=== PATIENT | female | born 1940 | race Caucasian/White ===

== ENCOUNTER 2016-08-16 06:15 | Outpatient (CLI) | payer MEDICARE ==
[~2016-08-16] VITALS: Ht 160 cm; Wt 85.7 kg
[~2016-08-16 06:15] MED LIST: ACET-2422 PO; ACET-819 PO; ALTERIL PC; AMLO10TA4 PO; ASPI-266 PO; ASPI-983 PO; ATEN25TA PO; ATOR20TA66 PO; CARV3.12 PO; CIPR-226 PO; CITA10TA70 PO; CLOP75TA PO; CLOP75TA69 PO; DIPH25TA82 PO; ESTR0.5T PO; HYDR-3812 PO; HYDR-3922 PO; LOSA50TA36 PO; LOSA50TA6 PO; Losartan Potassium PO; MELA1TAB20 PO; OMEP20CA12 PO; PRD20T PO; PROP1TAB77; TRAM50TA2 PO; TRIA1TAB3 PO; TRIAMTERENE; [UNRECOGNIZED DRUG - OTHER]
[2016-08-16] MEDS ORDERED: HYDR-3812 PO (10:46)
[2016-08-16] MEDS ORDERED: CARV6.252 PO (10:46)
[2016-08-16] MEDS ORDERED: HYDR12.5 PO (10:46)
[2016-08-16] MEDS ORDERED: TERA2CAP4 PO (10:46)
[2016-08-16] MEDS ORDERED: LOSA50TA36 PO (10:46)
== END 2016-08-16 10:54 ==
LOC: PREOP 06:15
PROVIDERS: ATTEND Surgery
DX: Z01.818 Encounter for other preprocedural examination (principal); K21.9 Gastro-esophageal reflux disease without esophagitis; D50.9 Iron deficiency anemia, unspecified

== ENCOUNTER 2016-10-06 17:26 | Outpatient (RCR) | payer MEDICARE ==
[~2016-10-06 17:26] MED LIST changes: +CARV6.252 PO; +HYDR12.5 PO; +TERA2CAP4 PO
[2016-10-23] MEDS ORDERED: FEXO180T84 PO (11:00)
[2016-10-29] MEDS ORDERED: PANT40TA2 PO (14:51)
== END 2016-12-07 | disposition home or self-care (01) ==
LOC: LAB 17:26
PROVIDERS: ATTEND Nurse Practitioner Family
DX: R05 Cough (principal)
CPT/HCPCS: 87070; 87205

== ENCOUNTER → 2016-10-21 | Outpatient (CLI) | payer MEDICARE ==
[~2016-10-21] MED LIST changes: +FEXO180T84 PO
--- NOTE | 2016-10-21 17:57 | Diagnostic Imaging Report ---
EXAM: CHEST PA/LAT (2 VIEW) INDICATION: COUGH COMPARISON: Chest radiograph of 05/03/2015. FINDINGS: Normal heart size and pulmonary vascularity. Calcified aorta. No focal pulmonary opacity, pleural effusion, or pneumothorax. No acute osseous findings. Postoperative findings in the lower cervical spine. Cholecystectomy clips. IMPRESSION: No acute cardiopulmonary findings. Dictated by: Dictated on workstation # [id number]
== END ==
LOC: RAD 16:46
PROVIDERS: ATTEND Nurse Practitioner Family
DX: R05 Cough (principal)
CPT/HCPCS: 71020; 87070; 87077; 87205

== ENCOUNTER 2016-10-23 05:39 | Outpatient (CLI) | payer MEDICARE ==
[~2016-10-23] VITALS: Ht 160 cm; Wt 83.5 kg
[~2016-10-23 05:39] MED LIST changes: -FEXO180T84 PO
[2016-10-23] MEDS ORDERED: FEXO180T84 PO (11:00)
== END 2016-10-23 11:05 ==
LOC: PREOP 05:39
PROVIDERS: ATTEND Surgery
DX: Z01.818 Encounter for other preprocedural examination (principal); K21.9 Gastro-esophageal reflux disease without esophagitis; D50.9 Iron deficiency anemia, unspecified

== ENCOUNTER 2016-10-29 09:26 | Day surgery (SDC) | payer MEDICARE ==
[~2016-10-29] VITALS: Ht 160 cm; Wt 83.5 kg
[~2016-10-29 09:26] MED LIST changes: +FEXO180T84 PO
[2016-10-29 09:35] VITALS: BP 182/78
[2016-10-29] MEDS ORDERED: LACTATED RINGERS 1,000 ML IV SCH (10:00)
[2016-10-29] MEDS ORDERED: HURRICAINE EXT TUBE (BENZOCAINE) XX PRN (10:00)
[2016-10-29] MEDS ORDERED: LACTATED RINGERS 1,000 ML IV ONE (10:19)
--- NOTE | 2016-10-29 11:14 | Progress Note-Pre Operative ---
Pre-Operative Progress Note H&P Reviewed The H&P was reviewed, patient examined and no changes noted. Date Seen by Provider: Oct 29, 2016 Time Seen by Provider: 11:14 Date H&P Reviewed: Oct 29, 2016 Time H&P Reviewed: 11:14 Pre-Operative Diagnosis: GERD IRON DEF ANEMIA JOCELYN EARLY DO Oct 29, 2016 11:14 am
[2016-10-29] MEDS ORDERED: proPOfol 200 MG/20 ML (DIPRIVAN) VIAL IV ONE ×2 (13:44→14:28)
[2016-10-29] MEDS ORDERED: MIDAZOLAM 2 MG/2 ML (VERSED) VIAL ONE (13:45)
[2016-10-29] MEDS ORDERED: HURRICAINE EXT TUBE (BENZOCAINE) ONE (14:04)
--- NOTE | 2016-10-29 14:50 | Progress Note-Post Operative ---
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
[2016-10-29] MEDS ORDERED: PANT40TA2 PO (14:51)
--- NOTE | 2016-10-29 14:52 | Discharge Inst-Simple/Standard ---
Discharge Inst-Standard Discharge Medications New, Converted or Re-Newed RX: Transmitted to Pharmacy Patient Instructions/Follow Up Plan of Care/Instructions/FU: start plavix back in 3 days as before. f/u oliva 2 weeks Activity as Tolerated: Yes Discharge Diet: Regular Diet JOCELYN EARLY DO Oct 29, 2016 14:52
[2016-10-29 15:00] VITALS: BP 168/70
[2016-10-29 15:30] VITALS: BP 173/78
[2016-10-29 15:45] VITALS: BP 173/78
--- NOTE | 2016-10-29 22:46 | OPERATIVE REPORT ---
DATE OF SERVICE: PREOPERATIVE DIAGNOSIS: Gastroesophageal reflux disease, iron deficiency anemia. POSTOPERATIVE DIAGNOSIS: Gastritis, rectosigmoid polyp x2. PROCEDURE: EGD with biopsy and colonoscopy with hot biopsy polypectomy x2. SURGEON: Jocelyn Ha DO ANESTHESIA: Per MANUFACTURING PLANNER. ESTIMATED BLOOD LOSS: None. SPECIMENS: Antrum and rectosigmoid polyps x2. INDICATIONS: The patient is a 76-year-old female, who has had GERD symptoms and iron deficiency anemia. She understands risks and benefits of procedures and wished to proceed with procedures. Consent was signed and on the chart. DESCRIPTION OF PROCEDURE: The patient was taken to the endoscopy suite, placed in left lateral recumbent position. Timeout was performed. Scope was inserted into the mouth, down the esophagus, stomach and into the duodenum without difficulty. There are no polyps, masses or ulcerations within the duodenum. The scope was slowly retracted back into the stomach. In the antrum, there were some areas of inflammation. Possibly a healing ulcer. Biopsy of the antrum was obtained. The scope was retroflexed noting no other pathology. Scope was returned to its normal position, slowly withdrawn until back into the distal esophagus. There are no polyps, masses, ulcerations or erythematous changes present in the esophagus. Scope was then slowly retracted back noting no other pathology. Digital rectal exam was performed and there were no palpable polyps, masses or ulcerations. Scope was inserted into the rectum and advanced all the way to the cecum with minimal difficulty. Prep was adequate. Scope was then slowly retracted back. There were no polyps, masses or ulcerations within the cecum, ascending, transverse, descending colon. Within the sigmoid colon, there was some diverticulosis present. The scope was continued to be retracted back. At the rectosigmoid area, there are 2 small polyps, which hot biopsy polypectomy was performed. Polypectomy was performed on both of these. The scope was also retroflexed in the rectum noting no other pathology. Scope was returned to its normal position, slowly withdrawn until completely removed. RECOMMENDATIONS: The patient due to gastritis and possible healing ulcer, we will start her on Protonix 40 mg daily. We will see how she is doing in approximately 2 weeks. She will follow up on the pathology on the polyps. We also would recommend repeat colonoscopy in 5 years for reevaluation of the colon polyps. If she has any problems prior to that, she should be reevaluated at that time. Job ID: [id number] DocumentID: [id number] Dictated Date: 10/29/2016 14:55:27 Hotel Attendant Date: 10/29/2016 22:45:40 Dictated By: JOCELYN HA DO
== END 2016-10-29 15:45 | disposition home or self-care (01) ==
LOC: ENDO 09:26
PROVIDERS: ATTEND Surgery
DX: D50.9 Iron deficiency anemia, unspecified (principal); K63.5 Polyp of colon; K21.9 Gastro-esophageal reflux disease without esophagitis; K29.70 Gastritis, unspecified, without bleeding; I10 Essential (primary) hypertension; J40 Bronchitis, not specified as acute or chronic; Z22.322 Carrier or suspected carrier of Methicillin resistant Staphylococcus aureus; I70.1 Atherosclerosis of renal artery; E66.9 Obesity, unspecified; Z68.32 Body mass index [BMI] 32.0-32.9, adult; Z79.02 Long term (current) use of antithrombotics/antiplatelets; Z79.899 Other long term (current) drug therapy; Z86.010 Personal history of colon polyps
CPT/HCPCS: 88305

== ENCOUNTER 2016-11-09 16:30 | Outpatient (RCR) | payer MEDICARE ==
[~2016-11-09 16:30] MED LIST changes: +PANT40TA2 PO
== END 2016-11-12 11:30 | disposition home or self-care (01) ==
LOC: LAB 16:30 → EDSTATUS 11-12 11:28 → LAB 11-12 11:30
PROVIDERS: ATTEND Nurse Practitioner Family
DX: A49.02 Methicillin resistant Staphylococcus aureus infection, unspecified site (principal)
CPT/HCPCS: 87081

== ENCOUNTER → 2017-06-03 | Outpatient (CLI) | payer MEDICARE ==
[~2017-06-03] MED LIST changes: +ACHD5005 PO; -HYDR-3812 PO
== END ==
LOC: CARD 11:38
PROVIDERS: ATTEND Physician Assistant
DX: I10 Essential (primary) hypertension (principal); E66.8 Other obesity; R00.2 Palpitations; I70.1 Atherosclerosis of renal artery; I08.0 Rheumatic disorders of both mitral and aortic valves
CPT/HCPCS: 93306

== ENCOUNTER → 2019-10-01 | Outpatient (CLI) | payer MEDICARE, OTHER ==
[~2019-10-01] MED LIST changes: -LOSA50TA36 PO; +LOSA50TA63 PO; +TRM50T PO
== END ==
LOC: CARD 10:30
PROVIDERS: ATTEND Physician Assistant
DX: D64.9 Anemia, unspecified (principal); I10 Essential (primary) hypertension; I70.1 Atherosclerosis of renal artery; R00.2 Palpitations
CPT/HCPCS: 93306

== ENCOUNTER → 2022-12-31 | Outpatient (CLI) | payer MEDICARE, OTHER ==
[~2022-12-31] MED LIST changes: +ASPI-1238 PO; -ASPI-983 PO; +CLOP-31 PO; -CLOP75TA69 PO
--- NOTE | 2022-12-31 15:53 | Diagnostic Imaging Report ---
TECHNIQUE: Live grayscale and color Doppler ultrasound was performed of the bilateral kidneys. Doppler evaluation of the renal arteries was performed. REASON FOR EXAM: Hypertension. History of right renal artery stent. COMPARISON: 04/07/2015. 01/20/2015. FINDINGS: The right kidney measures 9.0 cm in length. There is thinning of the renal cortex on the right. No focal mass or hydronephrosis. The peak systolic velocity within the right renal artery measures 62 cm/s. The right renal artery to aorta ratio is 0.7. The resistive indices within the arcuate arteries on the right range from 0.64 to 0.67. The left kidney measures 9.6 cm in length. Mild cortical thinning is seen in the left kidney. Simple cortical cyst is seen in the left kidney measuring 1.7 cm. No solid renal mass or hydronephrosis. The peak systolic velocity within the left renal artery measures 33 cm/s. The left renal artery to aorta ratio is 0.4. The resistive indices within the arcuate arteries on the left range from 0.6 to 0.76. The peak systolic velocity within the abdominal aorta is 85 cm/s. No ascites is seen in the abdomen. IMPRESSION: 1. No sonographic evidence of renal artery stenosis. 2. No acute abnormalities in the kidneys. No mass or hydronephrosis. 3. Thinned renal cortex bilaterally, suggestive of medical renal disease. Dictated by: Dictated on workstation # [id number]
== END ==
LOC: RAD 09:29
PROVIDERS: ATTEND Nurse Practitioner Critical Care Medicine
DX: R03.0 Elevated blood-pressure reading, without diagnosis of hypertension (principal); N18.9 Chronic kidney disease, unspecified; Z95.828 Presence of other vascular implants and grafts
CPT/HCPCS: 76770; 93975

== ENCOUNTER 2023-01-27 17:59 | Inpatient (IN) | payer MEDICARE, OTHER ==
[~2023-01-27] VITALS: Ht 160 cm; Wt 87.6 kg
--- NOTE | 2023-01-27 18:10 | ED General ---
General Stated Complaint: IRR HEART RATE/SOA Source of Information: Patient Exam Limitations: No Limitations History of Present Illness Date Seen by Provider: Jan 27, 2023 Time Seen by Provider: 18:10 Initial Comments Patient is an 82-year-old female who presents to the emergency department with her chief complaint of irregular heartbeat, a discomfort in her midsternal chest that feels like a "cramp". She states that she feels like this has been going on for few days, today a little bit worse. What prompted her to come in was the fact she took her blood pressure at home and it was in the 200s systolic. She states normally on a good day she is 150 systolic or so. She states she has felt a little congested today. She has had a nonproductive cough that she describes as "annoying". She has felt a little short of breath. No fevers or chills. No diarrhea. No dysuria urgency or frequency. No abnormal swelling in her lower extremities. Compliant with her daily medications. Her hide buffer is Dr. Boyer, she last saw him about 2 weeks ago. She states her blood pressure has been running "high". She is on verapamil and a clonidine patch. On arrival her EKG she is in a bigeminal pattern, heart rate 39. Counting the extrasystoles she is running in the 60s. Blood pressure quite elevated 210 or so systolic. She states she went to the hospital about a year and a half ago with chest pain and was transferred to [place], had angiography with no obstructive disease noted. She was placed on Plavix at the time and continues to take it. She does not take daily baby aspirin. Per review of Medical record - renal artery stent to Right renal a. 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 Timing/Duration: 2-3 Days Severity: Moderate Associated Systoms: Chest Pain, Cough, Shortness of Air Allergies and Home Medications Allergies Coded Allergies: Sulfa (Sulfonamide Antibiotics) (Verified Allergy, Unknown, 10/23/16) codeine (Verified Allergy, Unknown, 10/23/16) Patient Home Medication List Home Medication List Reviewed: Yes Acetaminophen (Tylenol Arthritis) 650 Mg Tablet.er, 650 MG PO BID, (Reported) Entered as Reported by: MAYCOL SCHMIDT on 01/28/23 1214 Last Action: Continued Cholecalciferol (Vitamin D3) (Vitamin D3) 50 Mcg (2000 Unit) Capsule, 50 MCG PO DAILY, (Reported) Entered as Reported by: MAYCOL SCHMIDT on 01/28/231213 Last Action: Converted Clonidine (Clonidine TTS 2 Patch) 0.2 Mg/24 Hour Patch.tdwk, 1 PATCH TD TUE, (Reported) Entered as Reported by: GINGER WILLIAMSON on 01/28/23910 Last Action: Continued Cyanocobalamin (Vitamin B-12) (Vitamin B-12) 500 Mcg Lozenge, 500 MCG PO DAILY, (Reported) Entered as Reported by: MAYCOL SCHMIDT on 01/28/231213 Last Action: Converted Lorazepam (Ativan) 0.5 Mg Tablet, 0.5 MG PO BID PRN for ANXIETY, (Reported) Entered as Reported by: GINGER WILLIAMSON on 01/28/23907 Last Action: Continued Lorazepam (Ativan) 0.5 Mg Tablet, 0.5 MG PO HS, (Reported) Entered as Reported by: MAYCOL SCHMIDT on 01/28/23 112 Last Action: Continued Verapamil HCl (Verapamil HCl) 120 Mg Tablet, 120 MG PO 0800,1400,1999, (Reported) Entered as Reported by: GINGER WILLIAMSON on 01/28/23907 Last Action: Held Vitamin B Complex (Vitamin B Complex) 1 Each Tablet, 1 EACH PO DAILY, (Reported) Entered as Reported by: MAYCOL SCHMIDT on 01/28/231213 Last Action: Converted Discontinued Medications Carvedilol (Carvedilol) 6.25 Mg Tablet, 6.25 MG PO BID, (Reported) Discontinued Reason: No Longer Taking Entered as Reported by: CARINE VARGAS on 08/16/16 1046 Last Action: Discontinued Clopidogrel Bisulfate (Plavix) 75 Mg Tablet, 75 MG PO DAILY, (Reported) Discontinued Reason: No Longer Taking Entered as Reported by: ZULEMA BENNETT on 05/03/15 0954 Last Action: Discontinued Fexofenadine HCl (Leona Allergy) 180 Mg Tablet, 180 MG PO DAILY, (Reported) Discontinued Reason: No Longer Taking Entered as Reported by: CARINE VARGAS on 10/23/16 1100 Last Action: Discontinued Hydrocodone Bit/Acetaminophen (Lortab 5 Mg Tablet) 1 Each Tablet, 1 EACH PO HS, (Reported) Discontinued Reason: No Longer Taking Entered as Reported by: CARINE VARGAS on 08/16/16 1046 Last Action: Discontinued Pantoprazole Sodium (Protonix) 40 Mg Tablet.dr, 40 MG PO DAILY Discontinued Reason: No Longer Taking Prescribed by: JOCELYN EARLY on 10/29/16 1451 Last Action: Discontinued Terazosin HCl (Terazosin HCl) 2 Mg Capsule, 2 MG PO BID, (Reported) Discontinued Reason: No Longer Taking Entered as Reported by: CARINE VARGAS on 08/16/16 104 Last Action: Discontinued Tramadol HCl (Tramadol HCl) 50 Mg Tablet, 50 MG PO BID PRN for PAIN, (Reported) Discontinued Reason: No Longer Taking Entered as Reported by: ZULEMA BENNETT on 05/03/15 0954 Last Action: Discontinued Review of Systems Review of Systems Constitutional: see HPI EENTM: nose congestion Respiratory: cough, short of breath Cardiovascular: chest pain Gastrointestinal: no symptoms reported Genitourinary: no symptoms reported Musculoskeletal: no symptoms reported Skin: no symptoms reported Psychiatric/Neurological: No Symptoms Reported Past Lqwujfd-Ybpwki-Eetdly Hx Immunizations Up To Date Tetanus Booster (TDap): Unknown Seasonal Allergies Seasonal Allergies: Yes Past Medical History Appendectomy, Bladder Surgery, Gallbladder, Hysterectomy Pneumonia Hypertension Reproductive Disorders: No 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 0.0oz. 83.076115pm; 32.6 BMI Method: General Appearance: No Apparent Distress, WD/WN Eyes: Bilateral Eye Normal Inspection, Bilateral Eye PERRL, Bilateral Eye EOMI HEENT: PERRL/EOMI Neck: Normal Inspection Respiratory: Lungs Clear, Normal Breath Sounds, No Accessory Muscle Use, No Respiratory Distress Cardiovascular: Bradycardia (30's), Other (2+ radial pulses bilaterally) Gastrointestinal: Non Tender, Soft Extremity: Normal Capillary Refill, Normal Inspection, Normal Range of Motion, Non Tender, No Pedal Edema Neurologic/Psychiatric: Alert, Oriented x3, No Motor/Sensory Deficits, Normal Mood/Affect, laboratory monitor II-XII Norm as Tested Progress/Results/Core Measures Suspected Sepsis SIRS Temperature: Pulse: Respiratory Rate: Laboratory Tests 01/27/23 18:10: White Blood Count 8.8 Blood Pressure / Mean: Laboratory Tests 01/27/23 18:10: Creatinine 2.09H, INR Comment 1.0, Platelet Count 289, Total Bilirubin 0.4 Results/Orders Lab Results Laboratory Tests Test 01/27/23 18:10 01/27/23 18:31 01/27/23 18:52 01/27/23 18:57 Range/Units White Blood Count 8.8 4.3-11.0 10^3/uL Red Blood Count 4.07 3.80-5.11 10^6/uL Hemoglobin 12.1 11.5-16.0 g/dL Hematocrit 38 35-52 % Mean Corpuscular Volume 93 80-99 fL Mean Corpuscular Hemoglobin 30 25-34 pg Mean Corpuscular Hemoglobin Concent 32 32-36 g/dL Red Cell Distribution Width 13.9 10.0-14.5 % Platelet Count 289 130-400 10^3/uL Mean Platelet Volume 10.7 9.0-12.2 fL Immature Granulocyte % (Auto) 0 % Neutrophils (%) (Auto) 62 42-75 % Lymphocytes (%) (Auto) 25 12-44 % Monocytes (%) (Auto) 8 0-12 % Eosinophils (%) (Auto) 4 0-10 % Basophils (%) (Auto) 1 0-10 % Neutrophils # (Auto) 5.5 1.8-7.8 10^3/uL Lymphocytes # (Auto) 2.2 1.0-4.0 10^3/uL Monocytes # (Auto) 0.7 0.0-1.0 10^3/uL Eosinophils # (Auto) 0.4 H 0.0-0.3 10^3/uL Basophils # (Auto) 0.1 0.0-0.1 10^3/uL Immature Granulocyte # (Auto) 0.0 0.0-0.1 10^3/uL Prothrombin Time 14.1 12.2-14.7 SEC INR Comment 1.0 0.8-1.4 Activated Partial Thromboplast Time 30 24-35 SEC Sodium Level 137 135-145 MMOL/L Potassium Level 4.1 3.6-5.0 MMOL/L Chloride Level 105 98-107 MMOL/L Carbon Dioxide Level 22 21-32 MMOL/L Anion Gap 10 5-14 MMOL/L Blood Urea Nitrogen 37 H 7-18 MG/DL Creatinine 2.09 H 0.60-1.30 MG/DL Estimat Glomerular Filtration Rate 23 BUN/Creatinine Ratio 18 Glucose Level 92 70-105 MG/DL Calcium Level 8.7 8.5-10.1 MG/DL Corrected Calcium 8.5 8.5-10.1 MG/DL Magnesium Level 2.2 1.6-2.4 MG/DL Total Bilirubin 0.4 0.1-1.0 MG/DL Aspartate Amino Transf (AST/SGOT) 17 5-34 U/L Alanine Aminotransferase (ALT/SGPT) 7 0-55 U/L Alkaline Phosphatase 90 40-136 U/L Myoglobin 66.4 10.0-92.0 NG/ML Troponin I < 0.028 <0.028 NG/ML Total Protein 7.7 6.4-8.2 GM/DL Albumin 4.2 3.2-4.5 GM/DL B-Type Natriuretic Peptide 767.5 H <100.0 PG/ML Urine Color YELLOW Urine Clarity CLEAR Urine pH 6.0 5-9 Urine Specific [place] 1.015 L 1.016-1.022 Urine Protein 3+ H NEGATIVE Urine Glucose (UA) NEGATIVE NEGATIVE Urine Ketones NEGATIVE NEGATIVE Urine Nitrite NEGATIVE NEGATIVE Urine Bilirubin NEGATIVE NEGATIVE Urine Urobilinogen 0.2 < = 1.0 MG/DL Urine Leukocyte Esterase NEGATIVE NEGATIVE Urine RBC (Auto) TRACE H NEGATIVE Urine RBC RARE /HPF Urine WBC NONE /HPF Urine Squamous Epithelial Cells NONE /HPF Urine Crystals NONE /LPF Urine Bacteria TRACE /HPF Urine Casts NONE /LPF Urine Mucus NEGATIVE /LPF Urine Culture Indicated NO SARS-CoV-2 RNA (RT-PCR) Not Detected Not Detecte My Orders Orders - TWAN HODGE MD Cbc And Automated Diff (01/27/23 18:27) Magnesium (01/27/23 18:27) Chest 1 View, Ap/Pa Only (01/27/23 18:27) Comprehensive Metabolic Panel (01/27/23 18:) Myoglobin Serum (01/27/23:) Protime With Inr (01/27/23) Partial Thromboplastin Time (01/27/23:) O2 (01/27/23 18:) Monitor-Rhythm Ecg Trace Only (01/27/23:) Lipid Panel (01/28/23 06:00) Ed Iv/Invasive Line Start (01/27/23:) Troponin I [place] (01/27/23 18:) Bnp [place] (01/27/23 18:29) Covid 19 Inhouse Test (01/27/23:) Ua Culture If Indicated (01/27/23 19:02) Ns Iv 500 Ml (Ns Iv 500 Ml) (01/27/23 19:02) Hydralazine Injection (Hydralazine Injec (01/27/23 19:15) Ed Admission (Communication) (01/27/23 19:49) Vital Signs/I&O 01/27/23 01/27/23 18:14 20:15 Temp 36.0 Pulse 73 65 Resp 18 20 B/P (MAP) 236/93 (140) 176/68 Pulse Ox 94 98 O2 Delivery Room Air Capillary Refill : Progress Note : Time: 19:00 Progress Note Patient seen and evaluated by me. Evaluation today includes history and physical exam with "chest pain protocol" to include EKG, CBC, comprehensive metabolic panel, magnesium level, myoglobin, coags, troponin, BNP, COVID test, urinalysis and magnesium level. Pertinent physical exam findings well-developed well-nourished female in no acute distress. Vital signs show bigeminal pattern on telemetry with heart rate showing in the 60s but actual palpable pulse in the upper 30s. Lungs are clear. Abdomen is soft and nontender. She has no lower extremity edema. She is mentating normally. Afebrile. Hypertensive with a systolic blood pressure in the 2 10-2 20 range. Differential diagnosis includes sick sinus syndrome, electrolyte abnormality, infection/UTI, coronary artery disease, hypertensive urgency versus emergency. Labs independently reviewed and interpreted by me as well as EKG, x-ray. Her CBC is normal, hemoglobin of 12 normal platelets, normal white count. Chem-12 is unremarkable except for mildly elevated BUN and creatinine at 37 and 2.09. Magnesium is normal at 2.2. Myoglobin is normal at 66. Her coags are within n ormal limits. Her troponin is undetectable. BNP mildly elevated at 767. Her urinalysis shows no evidence of infection, her COVID test is negative. Chest x- ray independently reviewed and interpreted by me shows what looks like early CHF/positive fluid balance. Her EKG is sinus in the upper 30s in a bigeminal pattern which puts her rate in the 70s. Patient is treated with 500 cc of normal saline IV as well as 10 mg of hydralazine. She has significant improvement in her blood pressure. She remains asymptomatic throughout her stay in the emergency department. She has no evidence of acute coronary syndrome, her electrolytes are normal. No evidence of infection was discovered. Due to what seems like, symptomatic bradycardia and arrhythmia, I spoke with Dr. Santiago on-call for cardiology who will consult on the patient. I also spoke with Dr. Carmen who will admit the patient for further evaluation. Patient is comfortable with the plan of care. All questions are sought and answered. ECG Initial ECG Impression Date: Jan 27, 2023 Initial ECG Impression Time: 18:10 Initial ECG Rate: 72 Comment underlying sinus (30's) with a bigeminal pattern making rate in the 60's-70 Diagnostic Imaging Diagonstic Imaging: Xray Plain Films/CT/US/NM/MRI: chest Comments [facility]. [place], [place] NAME: GIUSEPPE BOYER V [facility] REC#: [id number] PT STATUS: REG ER : 1940 PHYSICIAN: TWAN HODGE MD ADMIT DATE: 01/27/23/ER Signed Date of Exam:01/27/23 CHEST 1 VIEW, AP/PA ONLY INDICATION: Chest pain and shortness of breath. COMPARISONS: 10/21/2016 FINDINGS: Single view of the chest shows the cardiac contour to be enlarged. There is developing central venous congestion. Few scattered alveolar infiltrates are seen in the perihilar and bibasilar region but no confluent consolidations. There is no effusion or pneumothorax. Soft tissues and bony thorax are unremarkable. IMPRESSION: Developing congestive heart failure with superimposed scattered alveolar infiltrates but no confluent consolidations. Findings are accentuated by the portable technique. Dictated by: Dictated on workstation # [id number] Dict: 01/27/231856 Trans: 01/27/231903 [facility] [id number] Interpreted by: JULITA ROSADO MD Electronically signed by: JULITA ROSADO MD 01/27/231903 Departure Communication (Admissions) Time/Spoke to Admitting Phy: 19:[address] Carmen Time/Spoke to Consulting Phy: 19:[address] Santiago; Hydralazine 10mg Q6 (hold for SBP <140) Impression Primary Impression: Symptomatic bradycardia Additional Impression: Hypertensive urgency Disposition: ADMITTED INPATIENT Condition: Stable Admissions Decision to Admit Reason: Admit from ER (General) Decision to Admit/Date: Jan 27, 2023 Time/Decision to Admit Time: 19:10 Departure-Patient Inst. Referrals: Mony BOYD DO (PCP/Family) Primary Care Physician Copy Copies To 1: OSCAR BOYER MD, KATHRYN M MD Jan 27, 2023 18:10
[2023-01-27 18:32] LABS: BASOPHILS # (AUTO) 0.1 10^3/uL (0.0-0.1); BASOPHILS % (AUTO) 1 % (0-10); EOSINOPHILS # (AUTO) 0.4 10^3/uL (0.0-0.3); EOSINOPHILS % (AUTO) 4 % (0-10); HEMATOCRIT 38 % (35-52); HEMOGLOBIN 12.1 g/dL (11.5-16.0); LYMPHOCYTES # (AUTO) 2.2 10^3/uL (1.0-4.0); LYMPHOCYTES % (AUTO) 25 % (12-44); MEAN CORPUSCULAR HEMOGLOBIN 30 pg (25-34); MEAN CORPUSCULAR HGB CONC 32 g/dL (32-36); MEAN CORPUSCULAR VOLUME 93 fL (80-99); MEAN PLATELET VOLUME 10.7 fL (9.0-12.2); MONOCYTES # (AUTO) 0.7 10^3/uL (0.0-1.0); MONOCYTES % (AUTO) 8 % (0-12); NEUTROPHILS # (AUTO) 5.5 10^3/uL (1.8-7.8); NEUTROPHILS % (AUTO) 62 % (42-75); PLATELET COUNT 289 10^3/uL (130-400); WHITE BLOOD COUNT 8.8 10^3/uL (4.3-11.0)
[2023-01-27 18:43] LABS: PROTHROMBIN TIME PATIENT 14.1 SEC (12.2-14.7)
[2023-01-27 18:53] LABS: ALBUMIN 4.2 GM/DL (3.2-4.5); CHLORIDE 105 MMOL/L (98-107); POTASSIUM 4.1 MMOL/L (3.6-5.0); SODIUM 137 MMOL/L (135-145)
[2023-01-27 18:54] LABS: CALCIUM 8.7 MG/DL (8.5-10.1)
[2023-01-27 18:55] LABS: GLUCOSE 92 MG/DL (70-105); TOTAL PROTEIN 7.7 GM/DL (6.4-8.2)
[2023-01-27 18:56] LABS: CARBON DIOXIDE 22 MMOL/L (21-32)
[2023-01-27 18:57] LABS: BILIRUBIN,TOTAL 0.4 MG/DL (0.1-1.0)
[2023-01-27 18:59] LABS: ALKALINE PHOSPHATASE 90 U/L (40-136); CREATININE SERUM 2.09 MG/DL (0.60-1.30); GFR ESTIMATED 23
[2023-01-27 19:00] LABS: BUN/CREATININE RATIO 18
[2023-01-27 19:02] LABS: ALANINE AMINOTRANSFERASE 7 U/L (0-55); MAGNESIUM 2.2 MG/DL (1.6-2.4)
[2023-01-27] MEDS ORDERED: NS IV 500 ML 500 ML IV STA (19:02)
--- NOTE | 2023-01-27 19:02 | Diagnostic Imaging Report ---
INDICATION: Chest pain and shortness of breath. COMPARISONS: 10/21/2016 FINDINGS: Single view of the chest shows the cardiac contour to be enlarged. There is developing central venous congestion. Few scattered alveolar infiltrates are seen in the perihilar and bibasilar region but no confluent consolidations. There is no effusion or pneumothorax. Soft tissues and bony thorax are unremarkable. IMPRESSION: Developing congestive heart failure with superimposed scattered alveolar infiltrates but no confluent consolidations. Findings are accentuated by the portable technique. Dictated by: Dictated on workstation # [id number]
[2023-01-27] MEDS ORDERED: hydrALAZINE INJECTION 20 MG/ML VIAL IV ONE (19:15)
[2023-01-27 19:34] LABS: BACTERIA,URINE TRACE /HPF; BILIRUBIN,URINE NEGATIVE (NEGATIVE); CLARITY,URINE CLEAR; COLOR,URINE YELLOW; GLUCOSE, URINE (UA) NEGATIVE (NEGATIVE); KETONES,URINE NEGATIVE (NEGATIVE); LEUKOCYTE ESTERASE ,URINE NEGATIVE (NEGATIVE); NITRITE,URINE NEGATIVE (NEGATIVE); PROTEIN,URINE 3+ (NEGATIVE); RBC,URINE RARE /HPF
[2023-01-27] MEDS ORDERED: ONDANSETRON INJECTION 4 MG/2 ML (SDV) IV PRN (20:45)
[2023-01-27] MEDS ORDERED: BISACODYL 10 MG SUPPOSITORY PR PRN (20:45)
[2023-01-27] MEDS ORDERED: ANTACID SUSPENSION 30 ML UDC PO PRN (20:45)
[2023-01-27] MEDS ORDERED: NITROGLYCERIN 2% OINT 1 GM UNIT DOSE PACKET TOP PRN ×2 (20:45→21:45)
[2023-01-27] MEDS ORDERED: MILK OF MAGNESIA 400 MG/5 ML 30 ML UDC PO PRN (20:45)
[2023-01-27] MEDS ORDERED: NS IV 500 ML 500 ML IV PRN (20:45)
[2023-01-27] MEDS ORDERED: CALCIUM CARBONATE 500 MG CHEW TABLET PO PRN (20:45)
[2023-01-27] MEDS ORDERED: morphine INJ 4 MG/ML 1 ML (VIAL/SYRINGE) IV PRN (20:45)
[2023-01-27] MEDS ORDERED: ACETAMINOPHEN 325 MG TABLET PO PRN (20:45)
[2023-01-27] MEDS ORDERED: LACTULOSE SYRUP 10GM/15ML 30ML UDC PO PRN (20:45)
[2023-01-27] MEDS ORDERED: ONDANSETRON 4 MG ORAL DISSOLVE TABLET PO PRN (20:45)
[2023-01-27] MEDS ORDERED: oxyCODONE IMMEDIATE RELEASE 5 MG TABLET PO PRN (20:45)
[2023-01-27] MEDS ORDERED: MELATONIN 3 MG TABLET PO PRN (20:45)
[2023-01-27] MEDS ORDERED: diphenhydrAMINE INJ 50 MG/ML VIAL IVP PRN (20:45)
[2023-01-27] MEDS ORDERED: diphenhydrAMINE 25 MG TABLET PO PRN (20:45)
[2023-01-27] MEDS ORDERED: hydrALAZINE INJECTION 20 MG/ML VIAL ONE (20:48)
[2023-01-27] MEDS ORDERED: NITROGLYCERIN 2% OINT 1 GM UNIT DOSE PACKET ONE (20:48)
[2023-01-27 21:03] VITALS: BP 236/93
[2023-01-27] MEDS ORDERED: RT-ALBUTEROL SULF 2.5 MG/3 ML PRE-MIX VIAL INH PRN (21:15)
[2023-01-27] MEDS: DOCUSATE SODIUM 100 MG CAPSULE PO SCH (21:36)
[2023-01-27] MEDS: SENNOSIDES 8.6 MG TABLET PO SCH (21:36)
[2023-01-27 22:22] LABS: BACTERIA,URINE TRACE /HPF; BILIRUBIN,URINE NEGATIVE (NEGATIVE); CLARITY,URINE CLEAR; COLOR,URINE YELLOW; GLUCOSE, URINE (UA) NEGATIVE (NEGATIVE); KETONES,URINE NEGATIVE (NEGATIVE); LEUKOCYTE ESTERASE ,URINE NEGATIVE (NEGATIVE); NITRITE,URINE NEGATIVE (NEGATIVE); PROTEIN,URINE 2+ (NEGATIVE); RBC,URINE RARE /HPF; SQUAMOUS EPITHELIAL CELL,UR RARE /HPF
[2023-01-28] MEDS: hydrALAZINE INJECTION 20 MG/ML VIAL IV SCH ×6 (00:12→20:24)
[2023-01-28 05:47] LABS: BASOPHILS # (AUTO) 0.1 10^3/uL (0.0-0.1); BASOPHILS % (AUTO) 1 % (0-10); EOSINOPHILS # (AUTO) 0.3 10^3/uL (0.0-0.3); EOSINOPHILS % (AUTO) 4 % (0-10); HEMATOCRIT 32 % (35-52); HEMOGLOBIN 10.6 g/dL (11.5-16.0); LYMPHOCYTES # (AUTO) 1.5 10^3/uL (1.0-4.0); LYMPHOCYTES % (AUTO) 21 % (12-44); MEAN CORPUSCULAR HEMOGLOBIN 30 pg (25-34); MEAN CORPUSCULAR HGB CONC 33 g/dL (32-36); MEAN CORPUSCULAR VOLUME 90 fL (80-99); MEAN PLATELET VOLUME 10.9 fL (9.0-12.2); MONOCYTES # (AUTO) 0.6 10^3/uL (0.0-1.0); MONOCYTES % (AUTO) 8 % (0-12); NEUTROPHILS # (AUTO) 4.8 10^3/uL (1.8-7.8); NEUTROPHILS % (AUTO) 66 % (42-75); PLATELET COUNT 256 10^3/uL (130-400); WHITE BLOOD COUNT 7.2 10^3/uL (4.3-11.0)
[2023-01-28 06:00] LABS: POTASSIUM 4.1 MMOL/L (3.6-5.0)
[2023-01-28] MEDS ORDERED: POTASSIUM CHLORIDE 20 MEQ TABLET PO SCH (06:00)
[2023-01-28] MEDS ORDERED: MAGNESIUM 1 GM/100 ML IVPB 100 ML IV SCH (06:00)
[2023-01-28] MEDS ORDERED: POTASSIUM CL 10MEQ/50ML IVPB 50 ML IV SCH (06:00)
[2023-01-28 06:01] LABS: ALBUMIN 3.3 GM/DL (3.2-4.5)
[2023-01-28 06:02] LABS: CALCIUM 8.3 MG/DL (8.5-10.1)
[2023-01-28 06:03] LABS: TOTAL PROTEIN 6.2 GM/DL (6.4-8.2)
[2023-01-28 06:05] LABS: BILIRUBIN,TOTAL 0.4 MG/DL (0.1-1.0)
[2023-01-28 06:06] LABS: PHOSPHORUS 3.2 MG/DL (2.3-4.7)
[2023-01-28 06:07] LABS: CREATININE SERUM 1.8 MG/DL (0.60-1.30)
--- NOTE | 2023-01-28 08:22 | History & Physical ---
History of Present Illness HPI/Chief Complaint Chief complaint: Hypertensive urgency with symptomatic bradycardia HPI: This is an 82-year-old female who presented to the ER with palpitations found to have symptomatic bradycardia of 30 heart rate and hypertensive urgency of 240/120. Currently she reports she is doing much better and telemetry revealed heart rate of 70. Cardiology has been consulted. Patient will be moved to cardiac stepdown. Source: patient Exam Limitations: no limitations Date Seen 01/28/23 Time Seen by a Provider: 11:00 Attending Physician Mony Roper DO PCP Admitting Physician: Kaley Carmen DO Attending Physician: Kaley Carmen DO Referring Physician Date of Admission Jan 27, 2023 at 20:26 Home Medications & Allergies Home Medications Reviewed patient Home Medication Reconciliation performed by pharmacy medication reconciliations ground control approach technician and/or nursing. Patients Allergies have been reviewed. Allergies Allergies Coded Allergies Sulfa (Sulfonamide Antibiotics) (Verified Allergy, Unknown, 10/23/16) codeine (Verified Allergy, Unknown, 10/23/16) Past Xrwjmvb-Woyaft-Eefslr Hx Past Med/Social Hx: Reviewed Nursing Past Med/Soc Hx, Reviewed and Corrections made Patient Social History Marrital Status: Employed/Student: retired Alcohol Use: Denies Use Smoking Status: Never a Smoker Former Smoker, Quit: Aug 17, 1999 Recent Hopitalizations: No Immunizations Up To Date Tetanus Booster (TDap): Unknown Date of Pneumonia Vaccine: Dec 18, 2015 Date of Influenza Vaccine: Dec 18, 2015 Seasonal Allergies Seasonal Allergies: Yes Past Medical History Surgeries: Appendectomy, Bladder Surgery, Gallbladder, Hysterectomy Cardiac: Hypertension Reproductive: No Sexually Transmitted Disease: No HIV/AIDS: No Hysterectomy Gastrointestinal: Gastroesophageal Reflux, Polyps Musculoskeletal: Arthritis Endocrine: Lupus HEENT: Cataract Loss of Vision: Bilateral Hearing Impairment: Denies Psychosocial: Depression Adverse Reaction to Blood Parker: No (N/A) Review of Systems Constitutional: see HPI, malaise, weakness Cardiovascular: palpitations Physical Exam Physical Exam Vital Signs Vital Signs - First Documented 01/27/23 01/27/23 18:14 20:15 Temp 36.0 Pulse 73 Resp 18 B/P (MAP) 236/93 (140) Pulse Ox 94 O2 Delivery Room Air Capillary Refill : Less Than 3 Seconds Height, Weight, BMI Height: 5'3.00" Weight: 184lbs. 0.0oz. 83.915033yd; 34.25 BMI Method: General Appearance: No Apparent Distress, WD/WN, Chronically ill, Obese Eyes: Bilateral Eye Normal Inspection, Bilateral Eye PERRL, Bilateral Eye EOMI HEENT: PERRL/EOMI Neck: Normal Inspection Respiratory: Lungs Clear, Normal Breath Sounds, No Accessory Muscle Use, No Respiratory Distress Cardiovascular: Bradycardia (30's), Other (2+ radial pulses bilaterally) Gastrointestinal: Non Tender, Soft Extremity: Normal Capillary Refill, Normal Inspection, Normal Range of Motion, Non Tender, No Pedal Edema Neurologic/Psychiatric: Alert, Oriented x3, No Motor/Sensory Deficits, Normal Mood/Affect, finish remover II-XII Norm as Tested Results Results/Procedures Labs Laboratory Tests 01/27/23 18:10 01/28/23 05:18 Patient resulted labs reviewed. Assessment/Plan Admission Diagnosis Assessment: Hypertensive urgency Symptomatic bradycardia Plan: Hydralazine Cardiology consult v block saw operator Moved to cardiac stepdown Admission Status: Inpatient Order (span 2 midnights) Reason for Inpatient Admission: Hypertensive urgency with symptomatic bradycardia may need pacemaker Clinical Quality Measures AMI/AHF: ASA po Prior to arrival: KALEY Chin DO Jan 28, 2023 08:22
--- NOTE | 2023-01-28 08:25 | Diagnostic Imaging Report ---
EXAMINATION: Chest 1 view HISTORY: Hypertension COMPARISON: 01/27/2023 FINDINGS: The lungs are clear without edema or pneumonia. No pleural effusion or pneumothorax. Heart size is normal. IMPRESSION: 1. Clear lungs. Dictated by: Dictated on workstation # [id number]
[2023-01-28] MEDS: SENNOSIDES 8.6 MG TABLET PO SCH ×2 (08:26→20:17)
[2023-01-28] MEDS: DOCUSATE SODIUM 100 MG CAPSULE PO SCH ×2 (08:26→20:18)
[2023-01-28] MEDS ORDERED: LORA-404 PO ×2 (09:08→11:23)
[2023-01-28] MEDS ORDERED: VERA120T15 PO (09:08)
[2023-01-28] MEDS ORDERED: CLON1PAT34 TD (09:11)
--- NOTE | 2023-01-28 11:16 | Tele-ICU Progress Note ---
Subjective Date Seen by a Provider: Jan 28, 2023 Time Seen by a Provider: 11:15 Subjective/Events-last exam (Tele-ICU Physician , consultation as per request of PCP Service provided via interactive audio and video telecommunications E-CARE system to a patient admitted to ICU bed in [facility]. Available chart/ vitals / labs / Images reviewed H&P is from ER notes Patient's information available about PMH, Shx, Fhx allergy reviewed inEMR. ROS as per chart and RN report Now in ICU, hemodynamically stable Video assessment done using teleICU camera, rest of exam as per RN Discussed with RN. Hospital course: 01/27-82 yo female presented to ER w/ ccirregular heartbeat , discomfort in her midsternal chest. BP at home 200's systolic. EKG- HR 39. BNP- 767 Dx: symptomatic bradycardia A/P hypertensive urgency - responded to hydralazine IV - h/o renal stents - as per cards bradycardia - holding home meds , rate better - as per cards LUCIO ? CKD ( no labs since 2016 available - moitoir UO , might need IVF Anemia - stable Lines : peropg , (Central Line Necessity Reviewed) Starr: + OG: Nutrition: po Analgesia: Anxiety/ delirium VTE Prophylaxis: hep sq Stress Ulcer Prophylaxis: na Plans in collaboration with bedside consultants and IM MDs. Discussed with RN to reach out if any questions or concerns A total of 10 minutes of critical care time was devoted to this patient today, required to treat and/or prevent further deterioration of critical care condition ( as above ) . I am remotely monitoring this patient from another state. I am unable to do the bedside exam, and history/physical and pertinent information is taken from other notes in the computer and bedside staff. . Sepsis Event Evaluation Height, Weight, BMI Height: 5'3.00" Weight: 184lbs. 0.0oz. 83.254516wm; 34.25 BMI Method: Exam Exam Patient acknowledged, consented, and participated in this virtual visit which was conducted using real time audio/video Vital Signs Date Time Temp Pulse Resp B/P (MAP) Pulse Ox O2 Delivery O2 Flow Rate FiO2 01/28/23 11:00 80 119 165/64 (97) 96 Room Air 01/28/23 10:00 79 18 132/53 (79) 98 Room Air 01/28/23 09:00 77 18 123/43 (69) 96 Room Air 01/28/23 08:00 36.6 01/28/23 08:00 60 143/67 (92) 96 Room Air 01/28/23 07:00 60 15 131/49 (76) 93 Room Air 01/28/23 07:00 59 01/28/23 06:30 60 16 140/47 (75) 94 Room Air 01/28/23 06:00 58 16 142/52 (90) 94 Room Air 01/28/23 05:30 61 15 139/56 (88) 96 Room Air 01/28/23 05:00 57 16 126/49 (75) 93 Room Air 01/28/23 04:30 60 14 140/55 (99) 95 Room Air 01/28/23 04:22 97 Room Air 01/28/23 04:00 56 8 169/53 (99) 96 Room Air 01/28/23 03:30 60 13 180/73 (123) 94 Room Air 01/28/23 03:26 36.6 01/28/23 03:00 66 10 168/67 (113) 97 Room Air 01/28/23 02:30 61 17 156/64 (102) 96 Room Air 01/28/23 02:00 56 14 134/64 (104) 91 Room Air 01/28/23 01:30 56 15 144/63 (98) 95 Room Air 01/28/23 01:00 59 13 141/54 (94) 93 Room Air 01/28/23 01:00 56 01/28/23 00:30 55 10 128/47 (87) 94 Room Air 01/28/23 00:17 36.3 01/28/23 00:00 55 14 127/45 (90) 93 Room Air 01/27/23 23:59 97 Room Air 01/27/23 23:30 61 139/48 (93) 95 Room Air 01/27/23 23:12 61 15 126/48 (90) 94 Room Air 01/27/23 23:00 70 19 138/48 (88) 97 Room Air 01/27/23 22:30 64 17 187/73 (122) 96 Room Air 01/27/23 22:30 96 Room Air 01/27/23 22:15 73 12 97 Room Air 01/27/23 22:00 63 16 173/82 (105) 95 Room Air 01/27/23 21:45 194/75 (128) 01/27/23 21:30 67 14 183/73 (85) 96 Room Air 01/27/23 21:15 70 14 195/83 (115) 96 Room Air 01/27/23 21:03 36.0 73 94 01/27/23 21:00 69 20 191/77 (142) 98 Room Air 01/27/23 20:45 67 19 187/80 (135) 97 Room Air 01/27/23 20:36 35.9 70 10 193/87 (125) 98 Room Air 01/27/23 20:31 69 01/27/23 20:30 74 55 194/77 (119) Room Air 01/27/23 20:15 65 20 176/68 98 Room Air 01/27/23 18:14 36.0 73 18 236/93 (140) 94 I & O 01/28/23 06:59 Intake Total 600 ml Output Total 1400 ml Balance -800 ml Height & Weight Height: 5'3.00" Weight: 184lbs. 0.0oz. 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
[2023-01-28] MEDS ORDERED: ACET-2650 PO (12:14)
[2023-01-28] MEDS ORDERED: CHOL20003 PO (12:14)
[2023-01-28] MEDS ORDERED: CYAN500L PO (12:14)
[2023-01-28] MEDS ORDERED: VITA1TAB17 PO (12:14)
--- NOTE | 2023-01-28 14:11 | History & Physicial-Cardiolgy ---
HPI-Cardiology Cardiology Consultation: Date of Consultation 01/28/23 Date of Admission 01/27/2023 Attending Physician Mony Roper DO Admitting Physician Admitting Physician: Kaley Carmen DO Attending Physician: Kaley Carmen DO Consulting Physician IOANA ENGLAND MD HPI: Time Seen by a Provider: 10:50 Chief Complaint: Admitted because of low heart rate and high blood pressure Patient presented with complaint of increased fatigue, weakness, shortness of breath, uncontrolled blood pressure. She also reports that when she takes her blood pressure the machine she will schedule low heart rate, down to 40s. She does feel frequent irregular heartbeats. She recently had several changes of antihypertensive medications without consistent success. She has a history of hypertension, renal artery stenosis with renal artery angioplasty. Reportedly had negative coronary angiography last year. Review of Systems-Cardiology Review of Systems Constitutional: tiredness Eyes: no symptoms reported Ears/Nose/Throat: no symptoms reported Respiratory: shortness of breath Cardiovascular: irregular heart rate Gastrointestinal: no symptoms reported Genitourinary: no symptoms reported : No Musculoskeletal: no symptoms reported Skin: no symptoms reported Psychiatric/Neurological: no symptoms reported Hematologic: no symptoms reported GZO-Fsliis-Gsdirp Hx Patient Social History Former smoker/When Quit: May 03, 2004 Alcohol Use?: No Pt feels they are or have been: No Immunizations Up To Date Tetanus Booster (TDap): Unknown Date of Pneumonia Vaccine: Dec 18, 2015 Date of Influenza Vaccine: Dec 18, 2015 Past Medical History PMH As described under Assessment. Allergies and Home Medications Allergies Coded Allergies: Sulfa (Sulfonamide Antibiotics) (Verified Allergy, Unknown, 10/23/16) codeine (Verified Allergy, Unknown, 10/23/16) Patient Home Medication List Home Medication List Reviewed: Yes Acetaminophen (Tylenol Arthritis) 650 Mg Tablet.er, 650 MG PO BID, (Reported) Entered as Reported by: MAYCOL SCHMIDT on 01/28/23 1214 Last Action: Reviewed Cholecalciferol (Vitamin D3) (Vitamin D3) 50 Mcg (2000 Unit) Capsule, 50 MCG PO DAILY, (Reported) Entered as Reported by: MAYCOL SCHMIDT on 01/28/23 1214 Last Action: Reviewed Clonidine (Clonidine TTS 2 Patch) 0.2 Mg/24 Hour Patch.tdwk, 1 PATCH TD FRI, (Reported) Entered as Reported by: GINGER WILLIAMSON on 01/28/23 0911 Last Action: Reviewed Cyanocobalamin (Vitamin B-12) (Vitamin B-12) 500 Mcg Lozenge, 500 MCG PO DAILY, (Reported) Entered as Reported by: MAYCOL SCHMIDT on 01/28/23 1214 Last Action: Reviewed Lorazepam (Ativan) 0.5 Mg Tablet, 0.5 MG PO BID PRN for ANXIETY, (Reported) Entered as Reported by: GINGER WILLIAMSON on 01/28/23 09 Last Action: Reviewed Lorazepam (Ativan) 0.5 Mg Tablet, 0.5 MG PO HS, (Reported) Entered as Reported by: MAYCOL SCMHIDT on 01/28/23 112 Last Action: Reviewed Verapamil HCl (Verapamil HCl) 120 Mg Tablet, 120 MG PO 0800,1400,1999, (Reported) Entered as Reported by: GINGER WILLIAMSON on 01/28/23907 Last Action: Reviewed Vitamin B Complex (Vitamin B Complex) 1 Each Tablet, 1 EACH PO DAILY, (Reported) Entered as Reported by: MAYCOL SCHMIDT on 01/28/23 121 Last Action: Reviewed Discontinued Medications Carvedilol (Carvedilol) 6.25 Mg Tablet, 6.25 MG PO BID, (Reported) Discontinued Reason: No Longer Taking Entered as Reported by: CARINE VARGAS on 08/16/16 1046 Last Action: Discontinued Clopidogrel Bisulfate (Plavix) 75 Mg Tablet, 75 MG PO DAILY, (Reported) Discontinued Reason: No Longer Taking Entered as Reported by: ZULEMA BENNETT on 05/03/15 0954 Last Action: Discontinued Fexofenadine HCl (Leona Allergy) 180 Mg Tablet, 180 MG PO DAILY, (Reported) Discontinued Reason: No Longer Taking Entered as Reported by: CARINE VARGAS on 10/23/16 1100 Last Action: Discontinued Hydrocodone Bit/Acetaminophen (Lortab 5 Mg Tablet) 1 Each Tablet, 1 EACH PO HS, (Reported) Discontinued Reason: No Longer Taking Entered as Reported by: CARINE VARGAS on 08/16/16 1046 Last Action: Discontinued Pantoprazole Sodium (Protonix) 40 Mg Tablet.dr, 40 MG PO DAILY Discontinued Reason: No Longer Taking Prescribed by: JOCELYN EARLY on 10/29/16 1451 Last Action: Discontinued Terazosin HCl (Terazosin HCl) 2 Mg Capsule, 2 MG PO BID, (Reported) Discontinued Reason: No Longer Taking Entered as Reported by: CARINE VARGAS on 08/16/16 1046 Last Action: Discontinued Tramadol HCl (Tramadol HCl) 50 Mg Tablet, 50 MG PO BID PRN for PAIN, (Reported) Discontinued Reason: No Longer Taking Entered as Reported by: ZULEMA BENNETT on 05/03/15 0954 Last Action: Discontinued Physical Exam-Cardiology Physical Exam Vital Signs/I&O 01/28/23 01/28/23 01/28/23 01/28/23 02:30 03:00 03:26 03:30 Temp 36.6 Pulse 61 66 60 Resp 17 10 13 B/P (MAP) 156/64 (102) 168/67 (113) 180/73 (123) Pulse Ox 96 97 94 O2 Delivery Room Air Room Air Room Air 01/28/23 01/28/23 01/28/23 01/28/23 04:00 04:22 04:30 05:00 Pulse 56 60 57 Resp 8 14 16 B/P (MAP) 169/53 (99) 140/55 (99) 126/49 (75) Pulse Ox 96 97 95 93 O2 Delivery Room Air Room Air Room Air Room Air 01/28/23 01/28/23 01/28/23 01/28/23 05:30 06:00 06:30 07:00 Pulse 61 58 60 59 Resp 15 16 16 B/P (MAP) 139/56 (88) 142/52 (90) 140/47 (75) Pulse Ox 96 94 94 O2 Delivery Room Air Room Air Room Air 01/28/23 01/28/23 01/28/23 01/28/23 07:00 08:00 08:00 09:00 Temp 36.6 Pulse 60 60 77 Resp 15 18 B/P (MAP) 131/49 (76) 143/67 (92) 123/43 (69) Pulse Ox 93 96 96 O2 Delivery Room Air Room Air Room Air 01/28/23 01/28/23 01/28/23 01/28/23 10:00 11:00 12:00 12:11 Temp 36.3 Pulse 79 80 82 79 Resp 18 119 15 B/P (MAP) 132/53 (79) 165/64 (97) 195/73 (113) Pulse Ox 98 96 96 O2 Delivery Room Air Room Air Room Air 01/27/23 23:59 Intake Total 200 ml Output Total 600 ml Balance -400 ml Capillary Refill : Less Than 3 Seconds Constitutional: appears stated age, AAO x 3 HEENT: PERRL, normal ENT inspection Neck: non-tender, supple Respiratory: chest expansion is symmetric, lungs clear to percussion Cardiovascular: regular rate-rhythm, extra beats, S1 and S2, other (No murmurs) Gastrointestinal: soft, round, other (Nontender) Extremities: normal range of motion, no lower extremity edema bilateral Neurologic/Psychiatric: no motor/sensory deficits, alert, normal mood/affect, oriented x 3 Skin: normal color Lymphatic: no adenopathy Data Review Labs Laboratory Tests 01/27/23 18:10: White Blood Count 8.8, Red Blood Count 4.07, Hemoglobin 12.1, Hematocrit 38, Mean Corpuscular Volume 93, Mean Corpuscular Hemoglobin 30, Mean Corpuscular Hemoglobin Concent 32, Red Cell Distribution Width 13.9, Platelet Count 289, Mean Platelet Volume 10.7, Immature Granulocyte % (Auto) 0, Neutrophils (%) (Auto) 62, Lymphocytes (%) (Auto) 25, Monocytes (%) (Auto) 8, Eosinophils (%) (Auto) 4, Basophils (%) (Auto) 1, Neutrophils # (Auto) 5.5, Lymphocytes # (Auto) 2.2, Monocytes # (Auto) 0.7, Eosinophils # (Auto) 0.4H, Basophils # (Auto) 0.1, Immature Granulocyte # (Auto) 0.0, Prothrombin Time 14.1, INR Comment 1.0, Activated Partial Thromboplast Time 30, Sodium Level 137, Potassium Level 4.1, Chloride Level 105, Carbon Dioxide Level 22, Anion Gap 10, Blood Urea Nitrogen 37H, Creatinine 2.09H, Estimat Glomerular Filtration Rate 23, BUN/Creatinine Ratio 18, Glucose Level 92, Calcium Level 8.7, Corrected Calcium 8.5, Magnesium Level 2.2, Total Bilirubin 0.4, Aspartate Amino Transf (AST/SGOT) 17, Alanine Aminotransferase (ALT/SGPT) 7, Alkaline Phosphatase 90, Myoglobin 66.4, Troponin I < 0.028, Total Protein 7.7, Albumin 4.2 01/27/23 18:31: B-Type Natriuretic Peptide 767.5H 01/27/23 18:52: Urine Color YELLOW, Urine Clarity CLEAR, Urine pH 6.0, Urine Specific [place] 1.015L, Urine Protein 3+H, Urine Glucose (UA) NEGATIVE, Urine Ketones NEGATIVE, Urine Nitrite NEGATIVE, Urine Bilirubin NEGATIVE, Urine Urobilinogen 0.2, Urine Leukocyte Esterase NEGATIVE, Urine RBC (Auto) TRACEH, Urine RBC RARE, Urine WBC NONE, Urine Squamous Epithelial Cells NONE, Urine Crystals NONE, Urine Bacteria TRACE, Urine Casts NONE, Urine Mucus NEGATIVE, Urine Culture Indicated NO 01/27/23 18:57: SARS-CoV-2 RNA (RT-PCR) Not Detected 01/27/23 21:00: Urine Color YELLOW, Urine Clarity CLEAR, Urine pH 7.0, Urine Specific [place] 1.020, Urine Protein 2+H, Urine Glucose (UA) NEGATIVE, Urine Ketones NEGATIVE, Urine Nitrite NEGATIVE, Urine Bilirubin NEGATIVE, Urine Urobilinogen 0.2, Urine Leukocyte Esterase NEGATIVE, Urine RBC (Auto) NEGATIVE, Urine RBC RARE, Urine WBC NONE, Urine Squamous Epithelial Cells RARE, Urine Crystals NONE, Urine Bacteria TRACE, Urine Casts NONE, Urine Mucus NEGATIVE, Urine Culture Indicated NO 01/28/23 05:18: White Blood Count 7.2, Red Blood Count 3.54L, Hemoglobin 10.6L, Hematocrit 32L, Mean Corpuscular Volume 90, Mean Corpuscular Hemoglobin 30, Mean Corpuscular Hemoglobin Concent 33, Red Cell Distribution Width 13.7, Platelet Count 256, Mean Platelet Volume 10.9, Immature Granulocyte % (Auto) 0, Neutrophils (%) (Auto) 66, Lymphocytes (%) (Auto) 21, Monocytes (%) (Auto) 8, Eosinophils (%) (Auto) 4, Basophils (%) (Auto) 1, Neutrophils # (Auto) 4.8, Lymphocytes # (Auto) 1.5, Monocytes # (Auto) 0.6, Eosinophils # (Auto) 0.3, Basophils # (Auto) 0.1, Immature Granulocyte # (Auto) 0.0, Sodium Level 140, Potassium Level 4.1, Chloride Level 109H, Carbon Dioxide Level 23, Anion Gap 8, Blood Urea Nitrogen 35H, Creatinine 1.80H, Estimat Glomerular Filtration Rate 28, BUN/Creatinine Ratio 19, Glucose Level 96, Calcium Level 8.3L, Corrected Calcium 8.9, Phosphorus Level 3.2, Magnesium Level 2.0, Total Bilirubin 0.4, Aspartate Amino Transf (AST/SGOT) 15, Alanine Aminotransferase (ALT/SGPT) 9, Alkaline Phosphatase 78, Total Protein 6.2L, Albumin 3.3, Triglycerides Level 87, Cholesterol Level 161, LDL Cholesterol Direct 107, VLDL Cholesterol 17, HDL C holesterol 48 Radiology ate of Exam:01/28/23 CHEST 1 VIEW, AP/PA ONLY EXAMINATION: Chest 1 view HISTORY: Hypertension COMPARISON: 01/27/2023 FINDINGS: The lungs are clear without edema or pneumonia. No pleural effusion or pneumothorax. Heart size is normal. IMPRESSION: 1. Clear lungs. ECG Impression ECG Initial ECG Impression Date: Jan 27, 2023 Initial ECG Impression Time: 14:13 Comment Normal sinus rhythm with ventricular bigeminy, otherwise normal A/P-Cardiology Assessment/Admission Diagnosis Reported bradycardia. Uncontrolled hypertension. Frequent PVCs Admission Status: Inpatient Order (span 2 midnights) Reason for Inpatient Admission: Multiple medical problems, needs work-up Plan We will proceed with a echocardiogram and a stress test. We will start metoprolol for blood pressure and PVCs control. We will adjust medicine according to the response Clinical Quality Measures AMI/AHF: ASA po Prior to arrival: IOANA Pierre MD Jan 28, 2023 14:11
--- NOTE | 2023-01-28 14:13 | Physical Therapy Evaluation ---
PT Evaluation-General Medical Diagnosis Admission Date Jan 27, 2023 at 20:26 Medical Diagnosis: HTN urgency, symptomatic bradycardia Onset Date: Jan 28, 2023 Therapy Diagnosis Therapy Diagnosis: Gait deficit, strength deficit Height/Weight Height (Feet): 5 Height (Inches): 3.00 Weight (Pounds): 184 Weight (Ounces): 0.0 Precautions Precautions/Isolations: Fall Prevention, Standard Precautions Weight Bear Status Right Lower Extremity: Right Full Weight Bearing Left Lower Extremity: Left Full Weight Bearing Referral Physician: Dr. Carmen Reason for Referral: Evaluation/Treatment Medical History Reviewed History: Yes Social History Home: Single Level Current Living Status: Spouse Entry Into Home: Stairs With Railing PT Steps Into Home: 3 Prior Prior Level of Function SCALE: Activities may be completed with or without assistive devices. 8-Xgmesnvjfw-eaadiaw completes the activity by him/herself with no assistance from a helper. 5-Set-up or Clean-up Assistance-helper sets up or cleans up; patient completes activity. [place] assists only prior to or following the activity. 4-Supervision or Touching Assistance-helper provides verbal cues and/or touching/steadying and/or contact guard assistance as patient completes activity. Assistance may be provided throughout the activity or intermittently. 3-Partial/Moderate Assistance-helper does LESS THAN HALF the effort. [place] lifts, holds or supports trunk or limbs, but provides less than half the effort. 2-Substantial/Maximal Assistance-helper does MORE THAN HALF the effort. [place] lifts or holds trunk or limbs and provides more than half the effort. 4-Ptrtdzapv-ogpihf does ALL the effort. Patient does none of the effort to complete the activity. Or, the assistance of 2 or more helpers is required for the patient to complete the activity. If activity was not attempted, code reason: 7-Patient Refused. 9-Not Applicable-not attempted and the patient did not perform the activity before the current illness, exacerbation or injury. 10-Not Attempted due to Environmental Limitations-(lack of equipment, weather restraints, etc.). 88-Not Attempted due to Medical Conditions or Safety Concerns. Bed Mobility: 6 Transfers (B,C,W/C): 6 Gait: 6 Stairs: 6 Indoor Mobility (Ambulation): Independent Stairs: Independent Prior Devices Use: None PT Evaluation-Current Subjective Patient lying supine in bed upon PT arrival, agreeable to treatment. Patient rates pain at 0/10 currently. Objective Patient Orientation: Person, Place, Time, Situation Attachments: Starr Catheter ROM/Strength ROM Lower Extremities WFLs BLEs all planes Strength Lower Extremities 3+/5 BLEs all planes Sensory Vision: Functional Hearing: Functional Sensation Right Lower Extremit: Intact Sensation Left Lower Extremity: Intact Transfers Roll Left to Right (QC): 4 Sit to Lying (QC): 4 Lying to Sitting/Side of Bed(Q: 4 Sit to Stand (QC): 4 Gait Does the Patient Walk?: No and Walking Goal IS indicated Anticipated Mode of Locomotion: Walk Gait Assistive Device: None Balance Sitting Static: Normal Sitting Dynamic: Normal Standing Static: Fair Standing Dynamic: Poor Assessment/Needs Patient performs all bed mobility and transfers with SBA. Patient reports no dizziness upon sitting EOB, however after standing reports she experienced dizziness after ~ 1 minute of standing. Patient stood for ~ 1 more minute and reports "the sides are turning black." Patient immediately returned to bed with call light in reach, all needs met, nursing notified, call light in hand and in the room. Rehab Potential: Fair PT Supervisor [employer] Goals Group Home Goals PT Supervisor [employer] Goals Time Frame: Mar 08, 2023 Roll Left & Right (QC): 6 Sit to Lying (QC): 6 Lying-Sitting on Side/Bed(QC): 6 Sit to Stand (QC): 6 Chair/Upf-um-Uzaos Xfer(QC): 6 Toilet Transfer (QC): 6 Does the Patient Walk: Yes Walk 10 feet (QC): 4 Walk 50ft with 2 Turns (QC): 4 Walk 150 ft (QC): 4 1 Step (curb) (QC): 4 4 Steps (QC): 4 PT Plan Problem List Problem List: Activity Tolerance, Functional Strength, Safety, Balance, Gait, Transfer, Bed Mobility, ROM Treatment/Plan Treatment Plan: Continue Plan of Care Treatment Plan: Bed Mobility, Education, Functional Activity María, Functional Strength, Group Therapy, Gait, Safety, Therapeutic Exercise, Transfers Treatment Duration: Mar 08, 2023 Frequency: 5 times per week Estimated Hrs Per Day: .25 hour per day Patient and/or Family Agrees t: Yes Safety Risks/Education Patient Education: Gait Training, Transfer Techniques Teaching Recipient: Patient, Significant Other Teaching Methods: Demonstration, Discussion Response to Teaching: Reinforcement Needed Time Time In: 1342 Time Out: 1355 DATE: Jan 28, 2023 Total Billed Treatment Time: 13 Total Billed Treatment Visit, NATHANIEL ARELLANO PT Jan 28, 2023 14:13
[2023-01-28 15:46] VITALS: BP 140/55
[2023-01-28 19:00] VITALS: BP 140/56
[2023-01-28] MEDS ORDERED: LORazepam 0.5 MG TABLET PO PRN (19:45)
[2023-01-28] MEDS ORDERED: CLONIDINE PATCH REMOVAL TP SCH (19:59)
[2023-01-28 20:00] VITALS: BP 149/63
[2023-01-28] MEDS ORDERED: CLONIDINE 0.2 MG TD SCH (20:00)
[2023-01-28 20:12] VITALS: BP 155/63
[2023-01-28] MEDS: ACETAMINOPHEN ER 650 MG (ARTHRITIS) PO SCH (20:17)
[2023-01-28] MEDS: LORazepam 0.5 MG TABLET PO SCH (20:17)
[2023-01-28 21:00] VITALS: BP 152/57
[2023-01-28] MEDS: meTOprolol TARTRATE (IR) 25 MG TABLET PO SCH (21:17)
[2023-01-28 23:06] VITALS: BP 130/54
[2023-01-29] VITALS (16 sets, daily range): BP systolic 93–200; BP diastolic 44–81
[2023-01-29] MEDS: hydrALAZINE INJECTION 20 MG/ML VIAL IV SCH ×6 (00:04→20:37)
--- NOTE | 2023-01-29 05:24 | Progress Note ---
Subjective Date Seen by a Provider: Jan 29, 2023 Time Seen by a Provider: 11:00 Subjective/Events-last exam Patient is doing really well Blood pressure improving but still labile Stress test performed and echocardiogram performed awaiting those results Has external monitoring and evaluation advisor Reviewed meds and labs Review of Systems General: Fatigue, Malaise Objective Exam Last Set of Vital Signs Vital Signs Date Time Temp Pulse Resp B/P (MAP) Pulse Ox O2 Delivery O2 Flow Rate FiO2 01/29/23 03:33 36.3 59 20 129/50 (76) 93 Room Air Capillary Refill : Less Than 3 Seconds I&O Intake and Output 01/29/23 00:00 Intake Total 1250 ml Output Total 1600 ml Balance -350 ml Intake Oral 1250 ml Output Urine Total 1600 ml # Bowel Movements 2 General: Alert, Oriented X3, Cooperative, No Acute Distress Lungs: Clear to Auscultation, Normal Air Movement Heart: Regular Rate, Normal S1, Normal S2, No Murmurs Psych/Mental Status: Mental Status NL, Mood NL Results Lab Laboratory Tests 01/29/23 00:00: 01/29/23 04:28: Assessment/Plan Assessment/Plan Assess & Plan/Chief Complaint Assessment: Hypertensive urgency Symptomatic bradycardia Plan: Hydralazine Cardiology consult property assessment monitor Moved to cardiac stepdown Stress test and echo review by cardiology Clinical Quality Measures AMI/AHF: ASA po Prior to arrival: MATEO Chin DO Jan 29, 2023 05:24
[2023-01-29] MEDS: THERAPEUTIC MULTIVITAMIN W/MINERALS TABLET PO SCH (06:03)
[2023-01-29] MEDS: CYANOCOBALAMIN 1,000 MCG TABLET PO SCH (06:04)
[2023-01-29 06:05] LABS: ALBUMIN 3.5 GM/DL (3.2-4.5); POTASSIUM 4.2 MMOL/L (3.6-5.0)
[2023-01-29 06:07] LABS: CALCIUM 8.5 MG/DL (8.5-10.1)
[2023-01-29 06:08] LABS: TOTAL PROTEIN 6.5 GM/DL (6.4-8.2)
[2023-01-29 06:10] LABS: BILIRUBIN,TOTAL 0.5 MG/DL (0.1-1.0)
[2023-01-29 06:11] LABS: CREATININE SERUM 2.12 MG/DL (0.60-1.30)
[2023-01-29 06:15] LABS: MAGNESIUM 2.2 MG/DL (1.6-2.4)
[2023-01-29 06:37] LABS: BASOPHILS % (AUTO) 1 % (0-10); EOSINOPHILS # (AUTO) 0.3 10^3/uL (0.0-0.3); EOSINOPHILS % (AUTO) 4 % (0-10); HEMATOCRIT 33 % (35-52); HEMOGLOBIN 11.1 g/dL (11.5-16.0); LYMPHOCYTES # (AUTO) 1.5 10^3/uL (1.0-4.0); LYMPHOCYTES % (AUTO) 23 % (12-44); MEAN CORPUSCULAR HEMOGLOBIN 30 pg (25-34); MEAN CORPUSCULAR HGB CONC 33 g/dL (32-36); MEAN CORPUSCULAR VOLUME 91 fL (80-99); MEAN PLATELET VOLUME 11.8 fL (9.0-12.2); MONOCYTES # (AUTO) 0.6 10^3/uL (0.0-1.0); MONOCYTES % (AUTO) 9 % (0-12); NEUTROPHILS # (AUTO) 4.2 10^3/uL (1.8-7.8); NEUTROPHILS % (AUTO) 64 % (42-75); PLATELET COUNT 296 10^3/uL (130-400); WHITE BLOOD COUNT 6.7 10^3/uL (4.3-11.0)
[2023-01-29] MEDS ORDERED: REGADENOSON 0.4 MG/5 ML SYR IV ONE ×2 (07:58→09:15)
[2023-01-29] MEDS ORDERED: NON-FORMULARY MEDICATION 1 EA EA (Cholecalciferol (Vitamin D3) (Vitamin D3) 50 MCG) PO SCH (09:00)
[2023-01-29] MEDS ORDERED: NON-FORMULARY MEDICATION 1 EA EA (Vitamin B Complex 1 EACH) PO SCH (09:00)
[2023-01-29] MEDS ORDERED: NON-FORMULARY MEDICATION 1 EA EA (Cyanocobalamin (Vitamin B-12) (Vitamin B-12) 500 MCG) PO SCH (09:00)
[2023-01-29] MEDS: meTOprolol TARTRATE (IR) 25 MG TABLET PO SCH ×2 (10:17→20:38)
[2023-01-29] MEDS: VITAMIN D3 25 MCG (1,000 UNITS) TABLET PO SCH (10:17)
--- NOTE | 2023-01-29 10:23 | Physical Therapy Progress Note ---
Therapy Progress Note Pt reports that she just got back from a stress test this AM and does not want PT at this time. States that she would like PT to come back in the PM. Will come back at a later time. KARMA MULTANI INTEGRITY CONSULTANT Jan 29, 2023 10:23
[2023-01-29] MEDS: ACETAMINOPHEN ER 650 MG (ARTHRITIS) PO SCH ×2 (10:26→20:38)
[2023-01-29] MEDS: DOCUSATE SODIUM 100 MG CAPSULE PO SCH ×2 (10:45→20:38)
[2023-01-29] MEDS: SENNOSIDES 8.6 MG TABLET PO SCH ×2 (10:45→20:38)
--- NOTE | 2023-01-29 15:00 | Cardiology Progress Note ---
Subjective Date Seen by Provider: Jan 29, 2023 Time Seen by Provider: 09:00 Subjective/Events-last exam No complaints. Patient is in sinus rhythm no PVCs. Blood pressure still elevated Exam Vital Signs Vital Signs Date Time Temp Pulse Resp B/P (MAP) Pulse Ox O2 Delivery O2 Flow Rate FiO2 01/29/23 13:41 125/44 (71) 01/29/23 13:00 54 01/29/23 12:00 36.3 18 95 Room Air Physical Exam Alert oriented, no distress. Neck supple, no JVD. Lungs clear. Heart: S1-S2, regular rhythm, no murmurs. Abdomen soft, nontender. Extremities no edema Labs Laboratory Tests Test 01/29/23 04:28 01/29/23 05:30 Range/Units White Blood Count 6.7 4.3-11.0 10^3/uL Red Blood Count 3.66 L 3.80-5.11 10^6/uL Hemoglobin 11.1 L 11.5-16.0 g/dL Hematocrit 33 L 35-52 % Mean Corpuscular Volume 91 80-99 fL Mean Corpuscular Hemoglobin 30 25-34 pg Mean Corpuscular Hemoglobin Concent 33 32-36 g/dL Red Cell Distribution Width 14.0 10.0-14.5 % Platelet Count 296 130-400 10^3/uL Mean Platelet Volume 11.8 9.0-12.2 fL Immature Granulocyte % (Auto) 0 % Neutrophils (%) (Auto) 64 42-75 % Lymphocytes (%) (Auto) 23 12-44 % Monocytes (%) (Auto) 9 0-12 % Eosinophils (%) (Auto) 4 0-10 % Basophils (%) (Auto) 1 0-10 % Neutrophils # (Auto) 4.2 1.8-7.8 10^3/uL Lymphocytes # (Auto) 1.5 1.0-4.0 10^3/uL Monocytes # (Auto) 0.6 0.0-1.0 10^3/uL Eosinophils # (Auto) 0.3 0.0-0.3 10^3/uL Basophils # (Auto) 0.0 0.0-0.1 10^3/uL Immature Granulocyte # (Auto) 0.0 0.0-0.1 10^3/uL Sodium Level 136 135-145 MMOL/L Potassium Level 4.2 3.6-5.0 MMOL/L Chloride Level 106 98-107 MMOL/L Carbon Dioxide Level 22 21-32 MMOL/L Anion Gap 8 5-14 MMOL/L Blood Urea Nitrogen 33 H 7-18 MG/DL Creatinine 2.12 H 0.60-1.30 MG/DL Estimat Glomerular Filtration Rate 23 BUN/Creatinine Ratio 16 Glucose Level 103 70-105 MG/DL Calcium Level 8.5 8.5-10.1 MG/DL Corrected Calcium 8.9 8.5-10.1 MG/DL Magnesium Level 2.2 1.6-2.4 MG/DL Total Bilirubin 0.5 0.1-1.0 MG/DL Aspartate Amino Transf (AST/SGOT) 16 5-34 U/L Alanine Aminotransferase (ALT/SGPT) 9 0-55 U/L Alkaline Phosphatase 81 40-136 U/L Total Protein 6.5 6.4-8.2 GM/DL Albumin 3.5 3.2-4.5 GM/DL A/P-Cardiology Admission Diagnosis Hypertension. Frequent PVCs Assessment/Plan Workup in progress. Will check stress test and echocardiogram. Will add amlodipine 5 mg daily. Continue other medications IOANA ENGLAND MD Jan 29, 2023 15:00
--- NOTE | 2023-01-29 15:18 | Physical Therapy Daily Note ---
PT Daily Note-Current Subjective Patient lying supine in bed upon PT arrival, agreeable to treatment. Patient rates pain at 0/10 currently. Pain Section J - Health Conditions 1. Rarely or not at all 2. Occasionally 3. Frequently 4. Almost constantly 8. Unable to answer Pain Effect on Sleep: 1 Pain Interference with Therapy: 1 Pain Interference w/Day-to-Day: 1 Transfers SCALE: Activities may be completed with or without assistive devices. 8-Vhzwtnaxsr-kdxcviv completes the activity by him/herself with no assistance from a helper. 5-Set-up or Clean-up Assistance-helper sets up or cleans up; patient completes activity. [place] assists only prior to or following the activity. 4-Supervision or Touching Assistance-helper provides verbal cues and/or touching/steadying and/or contact guard assistance as patient completes activity. Assistance may be provided throughout the activity or intermittently. 3-Partial/Moderate Assistance-helper does LESS THAN HALF the effort. [place] lif ts, holds or supports trunk or limbs, but provides less than half the effort. 2-Substantial/Maximal Assistance-helper does MORE THAN HALF the effort. [place] lifts or holds trunk or limbs and provides more than half the effort. 4-Hlxkqejgg-uypwjw does ALL the effort. Patient does none of the effort to complete the activity. Or, the assistance of 2 or more helpers is required for the patient to complete the activity. If activity was not attempted, code reason: 7-Patient Refused. 9-Not Applicable-not attempted and the patient did not perform the activity before the current illness, exacerbation or injury. 10-Not Attempted due to Environmental Limitations-(lack of equipment, weather restraints, etc.). 88-Not Attempted due to Medical Conditions or Safety Concerns. Roll Left & Right (QC): 4 Sit to Lying (QC): 4 Lying to Sitting/Side of Bed(Q: 4 Sit to Stand (QC): 4 Chair/Wyj-my-Nzbpp Xfer(QC): 4 Weight Bearing Right Lower Extremity: Right Full Weight Bearing Left Lower Extremity: Left Full Weight Bearing Gait Training Does the Patient Walk?: Yes Distance: 100' Walk 10 feet (QC): 4 Walk 50 ft with 2 Turns(QC): 4 Gait Assistive Device: FWW Assessment Current Status: Good Progress Patient performs all bed mobility and transfers with SBA. Patient reports she has been getting up to the ambulate to the BR. Patient ambulates 100 feet with no AD, with SBA and verbal cues for safety, progression, posture. Patient in bed post treatment with all needs met, nursing notified, call light in hand. PT Fdc Goals [employer] Good[employer] Supervisor Goals PT Fdc Goals Time Frame: Mar 08, 2023 Roll Left & Right (QC): 6 Sit to Lying (QC): 6 Lying-Sitting on Side/Bed(QC): 6 Sit to Stand (QC): 6 Chair/Jrf-gm-Wybif Xfer(QC): 6 Toilet Transfer (QC): 6 Does the Patient Walk: Yes Walk 10 feet (QC): 4 Walk 50ft with 2 Turns (QC): 4 Walk 150 ft (QC): 4 1 Step (curb) (QC): 4 4 Steps (QC): 4 PT Plan Treatment/Plan Treatment Plan: Continue Plan of Care Treatment Plan: Bed Mobility, Education, Functional Activity María, Functional Strength, Group Therapy, Gait, Safety, Therapeutic Exercise, Transfers Treatment Duration: Mar 08, 2023 Frequency: 5 times per week Estimated Hrs Per Day: .25 hour per day Patient and/or Family Agrees t: Yes Safety Risks/Education Patient Education: Gait Training, Transfer Techniques Teaching Recipient: Patient Teaching Methods: Demonstration, Discussion Response to Teaching: Verbalize Understanding, Return Demonstration Time Time In: 1448 Time Out: 1500 DATE: Jan 29, 2023 Total Billed Treatment Time: 12 Total Billed Treatment Visit, GT NATHANIEL CRISOSTOMO PT Jan 29, 2023 15:18
[2023-01-29] MEDS: LORazepam 0.5 MG TABLET PO SCH (20:38)
[2023-01-30 00:10] VITALS: BP 128/56
[2023-01-30] MEDS: hydrALAZINE INJECTION 20 MG/ML VIAL IV SCH ×4 (00:15→12:01)
[2023-01-30 04:53] LABS: BASOPHILS % (AUTO) 0 % (0-10); EOSINOPHILS # (AUTO) 0.3 10^3/uL (0.0-0.3); EOSINOPHILS % (AUTO) 4 % (0-10); HEMATOCRIT 33 % (35-52); HEMOGLOBIN 10.7 g/dL (11.5-16.0); LYMPHOCYTES # (AUTO) 1.6 10^3/uL (1.0-4.0); LYMPHOCYTES % (AUTO) 23 % (12-44); MEAN CORPUSCULAR HEMOGLOBIN 30 pg (25-34); MEAN CORPUSCULAR HGB CONC 33 g/dL (32-36); MEAN CORPUSCULAR VOLUME 90 fL (80-99); MEAN PLATELET VOLUME 10.6 fL (9.0-12.2); MONOCYTES # (AUTO) 0.5 10^3/uL (0.0-1.0); MONOCYTES % (AUTO) 7 % (0-12); NEUTROPHILS # (AUTO) 4.7 10^3/uL (1.8-7.8); NEUTROPHILS % (AUTO) 66 % (42-75); PLATELET COUNT 259 10^3/uL (130-400); WHITE BLOOD COUNT 7.2 10^3/uL (4.3-11.0)
[2023-01-30 04:54] VITALS: BP 150/52
[2023-01-30] MEDS: THERAPEUTIC MULTIVITAMIN W/MINERALS TABLET PO SCH (05:05)
[2023-01-30] MEDS: CYANOCOBALAMIN 1,000 MCG TABLET PO SCH (05:05)
[2023-01-30 05:10] LABS: ALBUMIN 3.4 GM/DL (3.2-4.5); BILIRUBIN,TOTAL 0.4 MG/DL (0.1-1.0); CALCIUM 8.5 MG/DL (8.5-10.1); CREATININE SERUM 2.39 MG/DL (0.60-1.30); MAGNESIUM 2.1 MG/DL (1.6-2.4); POTASSIUM 4.6 MMOL/L (3.6-5.0); TOTAL PROTEIN 6.1 GM/DL (6.4-8.2)
--- NOTE | 2023-01-30 05:17 | Progress Note ---
Subjective Date Seen by a Provider: Jan 30, 2023 Time Seen by a Provider: 10:00 Subjective/Events-last exam Became orthostatic when walking. No bradycardia noted Labs stable but creatinine is increased No falls Awaiting Cardiology Review of Systems General: Fatigue, Malaise Objective Exam Last Set of Vital Signs Vital Signs Date Time Temp Pulse Resp B/P (MAP) Pulse Ox O2 Delivery O2 Flow Rate FiO2 01/30/23 04:54 36.6 63 18 150/52 (84) 96 Room Air Capillary Refill : Less Than 3 Seconds I&O Intake and Output 01/30/23 00:00 Intake Total 2040 ml Output Total 2450 ml Balance -410 ml Intake Oral 2040 ml Output Urine Total 2450 ml General: Alert, Oriented X3, Cooperative, No Acute Distress Lungs: Clear to Auscultation, Normal Air Movement Heart: Regular Rate, Normal S1, Normal S2, No Murmurs Psych/Mental Status: Mental Status NL, Mood NL Results Lab Laboratory Tests 01/29/23 05:30: Sodium Level 136, Potassium Level 4.2, Chloride Level 106, Carbon Dioxide Level 22, Anion Gap 8, Blood Urea Nitrogen 33H, Creatinine 2.12H, Estimat Glomerular Filtration Rate 23, BUN/Creatinine Ratio 16, Glucose Level 103, Calcium Level 8.5, Corrected Calcium 8.9, Magnesium Level 2.2, Total Bilirubin 0.5, Aspartate Amino Transf (AST/SGOT) 16, Alanine Aminotransferase (ALT/SGPT) 9, Alkaline Phosphatase 81, Total Protein 6.5, Albumin 3.5 01/30/23 04:32: Sodium Level 134L, Potassium Level 4.6, Chloride Level 104, Carbon Dioxide Level 20L, Anion Gap 10, Blood Urea Nitrogen 36H, Creatinine 2.39H, Estimat Glomerular Filtration Rate 20, BUN/Creatinine Ratio 15, Glucose Level 100, Calcium Level 8.5, Corrected Calcium 9.0, Magnesium Level 2.1, Total Bilirubin 0.4, Aspartate Amino Transf (AST/SGOT) 16, Alanine Aminotransferase (ALT/SGPT) 9, Alkaline Phosphatase 80, Total Protein 6.1L, Albumin 3.4, White Blood Count 7.2, Red Blood Count 3.62L, Hemoglobin 10.7L, Hematocrit 33L, Mean Corpuscular Volume 90, Mean Corpuscular Hemoglobin 30, Mean Corpuscular Hemoglobin Concent 33, Red Cell Distribution Width 14.0, Platelet Count 259, Mean Platelet Volume 10.6, Immature Granulocyte % (Auto) 0, Neutrophils (%) (Auto) 66, Lymphocytes (%) (Auto) 23, Monocytes (%) (Auto) 7, Eosinophils (%) (Auto) 4, Basophils (%) (Auto) 0, Neutrophils # (Auto) 4.7, Lymphocytes # (Auto) 1.6, Monocytes # (Auto) 0.5, Eosinophils # (Auto) 0.3, Basophils # (Auto) 0.0, Immature Granulocyte # (Auto) 0.0 Microbiology 01/27/23 MRSA Screen - Final, Complete MRSA not isolated Assessment/Plan Assessment/Plan Assess & Plan/Chief Complaint Assessment: Hypertensive urgency Symptomatic bradycardia Orthostasis when walking today Plan: Hydralazine Cardiology consult conveyor monitor Remain in cardiac stepdown Stress test and echo review by cardiology Clinical Quality Measures AMI/AHF: ASA po Prior to arrival: MATEO Chin DO Jan 30, 2023 05:17
[2023-01-30 07:12] VITALS: BP 143/53
[2023-01-30] MEDS: VITAMIN D3 25 MCG (1,000 UNITS) TABLET PO SCH (08:06)
[2023-01-30] MEDS: ACETAMINOPHEN ER 650 MG (ARTHRITIS) PO SCH (08:06)
[2023-01-30] MEDS: meTOprolol TARTRATE (IR) 25 MG TABLET PO SCH ×2 (08:06→16:50)
[2023-01-30] MEDS: DOCUSATE SODIUM 100 MG CAPSULE PO SCH (08:06)
[2023-01-30] MEDS: SENNOSIDES 8.6 MG TABLET PO SCH (08:06)
--- NOTE | 2023-01-30 08:57 | Physical Therapy Daily Note ---
PT Daily Note-Current Subjective Patient agrees to PT. She reports they have changed her BP medicine. Family present. Pain Section J - Health Conditions 1. Rarely or not at all 2. Occasionally 3. Frequently 4. Almost constantly 8. Unable to answer Pain Effect on Sleep: 1 Pain Interference with Therapy: 1 Pain Interference w/Day-to-Day: 1 Mental Status Attachments: Starr Catheter Transfers SCALE: Activities may be completed with or without assistive devices. 2-Shbbmqlbze-mywypss completes the activity by him/herself with no assistance from a helper. 5-Set-up or Clean-up Assistance-helper sets up or cleans up; patient completes activity. [place] assists only prior to or following the activity. 4-Supervision or Touching Assistance-helper provides verbal cues and/or touching/steadying and/or contact guard assistance as patient completes activity. Assistance may be provided throughout the activity or intermittently. 3-Partial/Moderate Assistance-helper does LESS THAN HALF the effort. [place] lifts, holds or supports trunk or limbs, but provides less than half the effort. 2-Substantial/Maximal Assistance-helper does MORE THAN HALF the effort. [place] lifts or holds trunk or limbs and provides more than half the effort. 9-Qxxpieauk-ibwbtm does ALL the effort. Patient does none of the effort to complete the activity. Or, the assistance of 2 or more helpers is required for the patient to complete the activity. If activity was not attempted, code reason: 7-Patient Refused. 9-Not Applicable-not attempted and the patient did not perform the activity before the current illness, exacerbation or injury. 10-Not Attempted due to Environmental Limitations-(lack of equipment, weather restraints, etc.). 88-Not Attempted due to Medical Conditions or Safety Concerns. Sit to Lying (QC): 6 Lying to Sitting/Side of Bed(Q: 6 Sit to Stand (QC): 6 Weight Bearing Right Lower Extremity: Right Full Weight Bearing Left Lower Extremity: Left Full Weight Bearing Treatments During session, patient c/o dizziness in sit and standing position. PT performed orthostatic hypotension testing and RN notified. Results are as follows: [id number], sit 110/49, stand (patient unable to tolerate and returned to supine due to feeling like she was going to pass out) 99/44. Patient unable to tolerate ambulation on this date and returned to supine. Assessment Patient had decrease in BP with upright activity with RN notified. Patient is in bed with needs met. 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 Shoe Rebuilder Goals PT Fdc Goals Time Frame: Mar 08, 2023 Roll Left & Right (QC): 6 Sit to Lying (QC): 6 Lying-Sitting on Side/Bed(QC): 6 Sit to Stand (QC): 6 Chair/Ryk-ac-Bgzkh Xfer(QC): 6 Toilet Transfer (QC): 6 Does the Patient Walk: Yes Walk 10 feet (QC): 4 Walk 50ft with 2 Turns (QC): 4 Walk 150 ft (QC): 4 1 Step (curb) (QC): 4 4 Steps (QC): 4 PT Plan Treatment/Plan Treatment Plan: Continue Plan of Care Treatment Plan: Bed Mobility, Education, Functional Activity María, Functional Strength, Group Therapy, Gait, Safety, Therapeutic Exercise, Transfers Treatment Duration: Mar 08, 2023 Frequency: 5 times per week Estimated Hrs Per Day: .25 hour per day Patient and/or Family Agrees t: Yes Time Time In: 825 Time Out: 840 DATE: Jan 30, 2023 Total Billed Treatment Time: 15 Total Billed Treatment 1 visit FA 15 min PATRICK SYLVESTER PT Jan 30, 2023 08:57
[2023-01-30] MEDS ORDERED: amLODIPine 5 MG TABLET PO SCH (09:00)
[2023-01-30 11:44] VITALS: BP 156/70
--- NOTE | 2023-01-30 13:31 | Cardiology Stress Test Report ---
Stress Test Report Date of Procedure/Referring: Date of Procedure: Jan 29, 2023 PCP Mony Roper DO Admitting Physician Admitting Physician: Kaley Carmen DO Attending Physician: Kaley Carmen DO Baseline Vital Signs Vital Signs Date Time Temp Pulse Resp B/P (MAP) Pulse Ox O2 Delivery O2 Flow Rate FiO2 01/27/23 18:14 36.0 73 18 236/93 (140) 94 01/27/23 20:15 Room Air Summary: Patient receive a resting and stress dose of Myoview, images were acquired and reviewed in the short axis view, horizontal long axis view and vertical long axis view. TID: 0.99 SSS: 5 SDS: 1 EF: 55 Breast attenuation with Mild decrease uptake at the base on anterior wall, no significant ischemia or infarction on SPECT images Normal LV function with EF 55% OSCAR MARSH MD Jan 30, 2023 13:31
--- NOTE | 2023-01-30 13:42 | Cardiology Progress Note ---
Subjective Date Seen by Provider: Jan 30, 2023 Time Seen by Provider: 12:40 Subjective/Events-last exam No complaints presently. This morning after IV hydralazine had orthostatic hypotension Exam Vital Signs Vital Signs Date Time Temp Pulse Resp B/P (MAP) Pulse Ox O2 Delivery O2 Flow Rate FiO2 01/30/23 12:42 59 01/30/23 11:44 36.3 14 156/70 (98) Room Air 01/30/23 07:12 96 Physical Exam Alert oriented, no distress. Neck supple no JVD. Lungs clear. Heart S1-S2, regular rhythm, no extra beats. Abdomen soft, nontender. Extremities no edema Labs Laboratory Tests Test 01/30/23 04:32 Range/Units White Blood Count 7.2 4.3-11.0 10^3/uL Red Blood Count 3.62 L 3.80-5.11 10^6/uL Hemoglobin 10.7 L 11.5-16.0 g/dL Hematocrit 33 L 35-52 % Mean Corpuscular Volume 90 80-99 fL Mean Corpuscular Hemoglobin 30 25-34 pg Mean Corpuscular Hemoglobin Concent 33 32-36 g/dL Red Cell Distribution Width 14.0 10.0-14.5 % Platelet Count 259 130-400 10^3/uL Mean Platelet Volume 10.6 9.0-12.2 fL Immature Granulocyte % (Auto) 0 % Neutrophils (%) (Auto) 66 42-75 % Lymphocytes (%) (Auto) 23 12-44 % Monocytes (%) (Auto) 7 0-12 % Eosinophils (%) (Auto) 4 0-10 % Basophils (%) (Auto) 0 0-10 % Neutrophils # (Auto) 4.7 1.8-7.8 10^3/uL Lymphocytes # (Auto) 1.6 1.0-4.0 10^3/uL Monocytes # (Auto) 0.5 0.0-1.0 10^3/uL Eosinophils # (Auto) 0.3 0.0-0.3 10^3/uL Basophils # (Auto) 0.0 0.0-0.1 10^3/uL Immature Granulocyte # (Auto) 0.0 0.0-0.1 10^3/uL Sodium Level 134 L 135-145 MMOL/L Potassium Level 4.6 3.6-5.0 MMOL/L Chloride Level 104 98-107 MMOL/L Carbon Dioxide Level 20 L 21-32 MMOL/L Anion Gap 10 5-14 MMOL/L Blood Urea Nitrogen 36 H 7-18 MG/DL Creatinine 2.39 H 0.60-1.30 MG/DL Estimat Glomerular Filtration Rate 20 BUN/Creatinine Ratio 15 Glucose Level 100 70-105 MG/DL Calcium Level 8.5 8.5-10.1 MG/DL Corrected Calcium 9.0 8.5-10.1 MG/DL Magnesium Level 2.1 1.6-2.4 MG/DL Total Bilirubin 0.4 0.1-1.0 MG/DL Aspartate Amino Transf (AST/SGOT) 16 5-34 U/L Alanine Aminotransferase (ALT/SGPT) 9 0-55 U/L Alkaline Phosphatase 80 40-136 U/L Total Protein 6.1 L 6.4-8.2 GM/DL Albumin 3.4 3.2-4.5 GM/DL A/P-Cardiology Admission Diagnosis Hypertension. Frequent PVCs Chronic renal insufficiency Assessment/Plan Awaiting the stress test results Echocardiogram showed normal LV contractility. Blood pressure is better controlled. Will discontinue IV hydralazine Continue other medications. If the stress test is normal patient could be discharged home. Need to follow-up with your trailer driver and motorsports technician since creatinine is slow rising IOANA ENGLAND MD Jan 30, 2023 13:42
--- NOTE | 2023-01-30 14:37 | Progress Note ---
Progress Note Chemical stress test report. Patient received Lexiscan injection as part of their nuclear Lexiscan stress test. Baseline blood pressure 231/73, baseline heart rate 79. Stress blood pressure: 189/74, stress heart rate 89 Baseline EKG: Normal sinus rhythm, Normal EKG Stress EKG: Normal sinus rhythm, no significant ST changes. Recovery: Unremarkable Conclusion: Negative stress test by clinical or EKG criteria. Nuclear test results will be reported separately IOANA ENGLAND MD Jan 30, 2023 14:37
[2023-01-30] MEDS ORDERED: AMLO-250 PO (16:26)
[2023-01-30] MEDS ORDERED: METO-333 PO (16:26)
--- NOTE | 2023-01-30 16:26 | Discharge Summary ---
Diagnosis/Chief Complaint Date of Admission Jan 27, 2023 at 20:26 Date of Discharge Discharge Date: Jan 30, 2023 Discharge Diagnosis Assessment: Hypertensive urgency Symptomatic bradycardia Orthostasis when walking today Plan: Hydralazine Cardiology consult teletypesetter monitor Remain in cardiac stepdown Stress test and echo review by cardiology Discharge Summary Discharge Physical Examination Allergies: Coded Allergies: Sulfa (Sulfonamide Antibiotics) (Verified Allergy, Unknown, 10/23/16) codeine (Verified Allergy, Unknown, 10/23/16) Vitals & I&Os Vital Signs Date Time Temp Pulse Resp B/P (MAP) Pulse Ox O2 Delivery O2 Flow Rate FiO2 01/30/23 12:42 59 01/30/23 11:44 36.3 14 156/70 (98) Room Air 01/30/23 07:12 96 General Appearance: Alert, Oriented X3, Cooperative Respiratory: Clear to Auscultation Cardiovascular: Regular Rate Psych/Mental Status: Mental Status NL Hospital Course Was the Problem List Reviewed?: Yes Uneventful course after she was admitted for HTN urgency along with bradycardia. Verapamil DC. HTN was managed with additional meds of Norvasc and Lopressor. CKD levels remained stable. Orthostasis did occur bur resolved. EST and ECHO reviewed by Cardiology and she was assessed to be stable for DC Labs (last 24 hrs) Laboratory Tests 01/27/23 18:10: White Blood Count 8.8, Red Blood Count 4.07, Hemoglobin 12.1, Hematocrit 38, Mean Corpuscular Volume 93, Mean Corpuscular Hemoglobin 30, Mean Corpuscular Hemoglobin Concent 32, Red Cell Distribution Width 13.9, Platelet Count 289, Mean Platelet Volume 10.7, Immature Granulocyte % (Auto) 0, Neutrophils (%) (Auto) 62, Lymphocytes (%) (Auto) 25, Monocytes (%) (Auto) 8, Eosinophils (%) (Auto) 4, Basophils (%) (Auto) 1, Neutrophils # (Auto) 5.5, Lymphocytes # (Auto) 2.2, Monocytes # (Auto) 0.7, Eosinophils # (Auto) 0.4H, Basophils # (Auto) 0.1, Immature Granulocyte # (Auto) 0.0, Prothrombin Time 14.1, INR Comment 1.0, Activated Partial Thromboplast Time 30, Sodium Level 137, Potassium Level 4.1, Chloride Level 105, Carbon Dioxide Level 22, Anion Gap 10, Blood Urea Nitrogen 37H, Creatinine 2.09H, Estimat Glomerular Filtration Rate 23, BUN/Creatinine Ratio 18, Glucose Level 92, Calcium Level 8.7, Corrected Calcium 8.5, Magnesium Level 2.2, Total Bilirubin 0.4, Aspartate Amino Transf (AST/SGOT) 17, Alanine Aminotransferase (ALT/SGPT) 7, Alkaline Phosphatase 90, Myoglobin 66.4, Troponin I < 0.028, Total Protein 7.7, Albumin 4.2 01/27/23 18:31: B-Type Natriuretic Peptide 767.5H 01/27/23 18:52: Urine Color YELLOW, Urine Clarity CLEAR, Urine pH 6.0, Urine Specific [place] 1.015L, Urine Protein 3+H, Urine Glucose (UA) NEGATIVE, Urine Ketones NEGATIVE, Urine Nitrite NEGATIVE, Urine Bilirubin NEGATIVE, Urine Urobilinogen 0.2, Urine Leukocyte Esterase NEGATIVE, Urine RBC (Auto) TRACEH, Urine RBC RARE, Urine WBC NONE, Urine Squamous Epithelial Cells NONE, Urine Crystals NONE, Urine Bacteria TRACE, Urine Casts NONE, Urine Mucus NEGATIVE, Urine Culture Indicated NO 01/27/23 18:57: SARS-CoV-2 RNA (RT-PCR) Not Detected 01/27/23 21:00: Urine Color YELLOW, Urine Clarity CLEAR, Urine pH 7.0, Urine Specific [place] 1.020, Urine Protein 2+H, Urine Glucose (UA) NEGATIVE, Urine Ketones NEGATIVE, Urine Nitrite NEGATIVE, Urine Bilirubin NEGATIVE, Urine Urobilinogen 0.2, Urine Leukocyte Esterase NEGATIVE, Urine RBC (Auto) NEGATIVE, Urine RBC RARE, Urine WBC NONE, Urine Squamous Epithelial Cells RARE, Urine Crystals NONE, Urine Bacteria TRACE, Urine Casts NONE, Urine Mucus NEGATIVE, Urine Culture Indicated NO 01/28/23 05:18: White Blood Count 7.2, Red Blood Count 3.54L, Hemoglobin 10.6L, Hematocrit 32L, Mean Corpuscular Volume 90, Mean Corpuscular Hemoglobin 30, Mean Corpuscular Hemoglobin Concent 33, Red Cell Distribution Width 13.7, Platelet Count 256, Mean Platelet Volume 10.9, Immature Granulocyte % (Auto) 0, Neutrophils (%) (Auto) 66, Lymphocytes (%) (Auto) 21, Monocytes (%) (Auto) 8, Eosinophils (%) (Auto) 4, Basophils (%) (Auto) 1, Neutrophils # (Auto) 4.8, Lymphocytes # (Auto) 1.5, Monocytes # (Auto) 0.6, Eosinophils # (Auto) 0.3, Basophils # (Auto) 0.1, Immature Granulocyte # (Auto) 0.0, Sodium Level 140, Potassium Level 4.1, Chloride Level 109H, Carbon Dioxide Level 23, Anion Gap 8, Blood Urea Nitrogen 35H, Creatinine 1.80H, Estimat Glomerular Filtration Rate 28, BUN/Creatinine Ratio 19, Glucose Level 96, Calcium Level 8.3L, Corrected Calcium 8.9, Phosphorus Level 3.2, Magnesium Level 2.0, Total Bilirubin 0.4, Aspartate Amino Transf (AST/SGOT) 15, Alanine Aminotransferase (ALT/SGPT) 9, Alkaline Phosphatase 78, Total Protein 6.2L, Albumin 3.3, Triglycerides Level 87, Cholesterol Level 161, LDL Cholesterol Direct 107, VLDL Cholesterol 17, HDL Cholesterol 48 01/29/23 04:28: White Blood Count 6.7, Red Blood Count 3.66L, Hemoglobin 11.1L, Hematocrit 33L, Mean Corpuscular Volume 91, Mean Corpuscular Hemoglobin 30, Mean Corpuscular Hemoglobin Concent 33, Red Cell Distribution Width 14.0, Platelet Count 296, Mean Platelet Volume 11.8, Immature Granulocyte % (Auto) 0, Neutrophils (%) (Auto) 64, Lymphocytes (%) (Auto) 23, Monocytes (%) (Auto) 9, Eosinophils (%) (Auto) 4, Basophils (%) (Auto) 1, Neutrophils # (Auto) 4.2, Lymphocytes # (Auto) 1.5, Monocytes # (Auto) 0.6, Eosinophils # (Auto) 0.3, Basophils # (Auto) 0.0, Immature Granulocyte # (Auto) 0.0 01/29/23 05:30: Sodium Level 136, Potassium Level 4.2, Chloride Level 106, Carbon Dioxide Level 22, Anion Gap 8, Blood Urea Nitrogen 33H, Creatinine 2.12H, Estimat Glomerular Filtration Rate 23, BUN/Creatinine Ratio 16, Glucose Level 103, Calcium Level 8.5, Corrected Calcium 8.9, Magnesium Level 2.2, Total Bilirubin 0.5, Aspartate Amino Transf (AST/SGOT) 16, Alanine Aminotransferase (ALT/SGPT) 9, Alkaline Phosphatase 81, Total Protein 6.5, Albumin 3.5 01/30/23 04:32: White Blood Count 7.2, Red Blood Count 3.62L, Hemoglobin 10.7L, Hematocrit 33L, Mean Corpuscular Volume 90, Mean Corpuscular Hemoglobin 30, Mean Corpuscular Hemoglobin Concent 33, Red Cell Distribution Width 14.0, Platelet Count 259, Mean Platelet Volume 10.6, Immature Granulocyte % (Auto) 0, Neutrophils (%) (Auto) 66, Lymphocytes (%) (Auto) 23, Monocytes (%) (Auto) 7, Eosinophils (%) (Auto) 4, Basophils (%) (Auto) 0, Neutrophils # (Auto) 4.7, Lymphocytes # (Auto) 1.6, Monocytes # (Auto) 0.5, Eosinophils # (Auto) 0.3, Basophils # (Auto) 0.0, Immature Granulocyte # (Auto) 0.0, Sodium Level 134L, Potassium Level 4.6, Chloride Level 104, Carbon Dioxide Level 20L, Anion Gap 10, Blood Urea Nitrogen 36H, Creatinine 2.39H, Estimat Glomerular Filtration Rate 20, BUN/Creatinine Ratio 15, Glucose Level 100, Calcium Level 8.5, Corrected Calcium 9.0, Magnesium Level 2.1, Total Bilirubin 0.4, Aspartate Amino Transf (AST/SGOT) 16, Alanine Aminotransferase (ALT/SGPT) 9, Alkaline Phosphatase 80, Total Protein 6.1L, Albumin 3.4 Microbiology 01/27/23 MRSA Screen - Final, Complete MRSA not isolated Pending Labs Microbiology Date/Time Source Procedure Growth Status 01/27/23 20:35 Nasal MRSA Screen - Final MRSA not isolated Complete Laboratory Tests 01/27/23 18:10: White Blood Count 8.8, Red Blood Count 4.07, Hemoglobin 12.1, Hematocrit 38, Mean Corpuscular Volume 93, Mean Corpuscular Hemoglobin 30, Mean Corpuscular Hemoglobin Concent 32, Red Cell Distribution Width 13.9, Platelet Count 289, Mean Platelet Volume 10.7, Immature Granulocyte % (Auto) 0, Neutrophils (%) (Auto) 62, Lymphocytes (%) (Auto) 25, Monocytes (%) (Auto) 8, Eosinophils (%) (Auto) 4, Basophils (%) (Auto) 1, Neutrophils # (Auto) 5.5, Lymphocytes # (Auto) 2.2, Monocytes # (Auto) 0.7, Eosinophils # (Auto) 0.4, Basophils # (Auto) 0.1, Immature Granulocyte # (Auto) 0.0, Prothrombin Time 14.1, INR Comment 1.0, Activated Partial Thromboplast Time 30, Sodium Level 137, Potassium Level 4.1, Chloride Level 105, Carbon Dioxide Level 22, Anion Gap 10, Blood Urea Nitrogen 37, Creatinine 2.09, Estimat Glomerular Filtration Rate 23, BUN/Creatinine Ratio 18, Glucose Level 92, Calcium Level 8.7, Corrected Calcium 8.5, Magnesium Level 2.2, Total Bilirubin 0.4, Aspartate Amino Transf (AST/SGOT) 17, Alanine Aminotransferase (ALT/SGPT) 7, Alkaline Phosphatase 90, Myoglobin 66.4, Troponin I < 0.028, Total Protein 7.7, Albumin 4.2 01/27/23 18:31: B-Type Natriuretic Peptide 767.5 01/27/23 18:52: Urine Color YELLOW, Urine Clarity CLEAR, Urine pH 6.0, Urine Specific [place] 1.015, Urine Protein 3+, Urine Glucose (UA) NEGATIVE, Urine Ketones NEGATIVE, Urine Nitrite NEGATIVE, Urine Bilirubin NEGATIVE, Urine Urobilinogen 0.2, Urine Leukocyte Esterase NEGATIVE, Urine RBC (Auto) TRACE, Urine RBC RARE, Urine WBC NONE, Urine Squamous Epithelial Cells NONE, Urine Crystals NONE, Urine Bacteria TRACE, Urine Casts NONE, Urine Mucus NEGATIVE, Urine Culture Indicated NO 01/27/23 18:57: SARS-CoV-2 RNA (RT-PCR) Not Detected 01/27/23 21:00: Urine Color YELLOW, Urine Clarity CLEAR, Urine pH 7.0, Urine Specific [place] 1.020, Urine Protein 2+, Urine Glucose (UA) NEGATIVE, Urine Ketones NEGATIVE, Urine Nitrite NEGATIVE, Urine Bilirubin NEGATIVE, Urine Urobilinogen 0.2, Urine Leukocyte Esterase NEGATIVE, Urine RBC (Auto) NEGATIVE, Urine RBC RARE, Urine WBC NONE, Urine Squamous Epithelial Cells RARE, Urine Crystals NONE, Urine Bacteria TRACE, Urine Casts NONE, Urine Mucus NEGATIVE, Urine Culture Indicated NO 01/28/23 05:18: White Blood Count 7.2, Red Blood Count 3.54, Hemoglobin 10.6, Hematocrit 32, Mean Corpuscular Volume 90, Mean Corpuscular Hemoglobin 30, Mean Corpuscular Hemoglobin Concent 33, Red Cell Distribution Width 13.7, Platelet Count 256, Mean Platelet Volume 10.9, Immature Granulocyte % (Auto) 0, Neutrophils (%) (Auto) 66, Lymphocytes (%) (Auto) 21, Monocytes (%) (Auto) 8, Eosinophils (%) (Auto) 4, Basophils (%) (Auto) 1, Neutrophils # (Auto) 4.8, Lymphocytes # (Auto) 1.5, Monocytes # (Auto) 0.6, Eosinophils # (Auto) 0.3, Basophils # (Auto) 0.1, Immature Granulocyte # (Auto) 0.0, Sodium Level 140, Potassium Level 4.1, Chloride Level 109, Carbon Dioxide Level 23, Anion Gap 8, Blood Urea Nitrogen 35, Creatinine 1.80, Estimat Glomerular Filtration Rate 28, BUN/Creatinine Ratio 19, Glucose Level 96, Calcium Level 8.3, Corrected Calcium 8.9, Phosphorus Level 3.2, Magnesium Level 2.0, Total Bilirubin 0.4, Aspartate Amino Transf (AST/SGOT) 15, Alanine Aminotransferase (ALT/SGPT) 9, Alkaline Phosphatase 78, Total Protein 6.2, Albumin 3.3, Triglycerides Level 87, Cholesterol Level 161, LDL Cholesterol Direct 107, VLDL Cholesterol 17, HDL Cholesterol 48 01/29/23 04:28: White Blood Count 6.7, Red Blood Count 3.66, Hemoglobin 11.1, Hematocrit 33, Mean Corpuscular Volume 91, Mean Corpuscular Hemoglobin 30, Mean Corpuscular Hemoglobin Concent 33, Red Cell Distribution Width 14.0, Platelet Count 296, Mean Platelet Volume 11.8, Immature Granulocyte % (Auto) 0, Neutrophils (%) (Auto) 64, Lymphocytes (%) (Auto) 23, Monocytes (%) (Auto) 9, Eosinophils (%) (Auto) 4, Basophils (%) (Auto) 1, Neutrophils # (Auto) 4.2, Lymphocytes # (Auto) 1.5, Monocytes # (Auto) 0.6, Eosinophils # (Auto) 0.3, Basophils # (Auto) 0.0, Immature Granulocyte # (Auto) 0.0 01/29/23 05:30: Sodium Level 136, Potassium Level 4.2, Chloride Level 106, Carbon Dioxide Level 22, Anion Gap 8, Blood Urea Nitrogen 33, Creatinine 2.12, Estimat Glomerular Filtration Rate 23, BUN/Creatinine Ratio 16, Glucose Level 103, Calcium Level 8.5, Corrected Calcium 8.9, Magnesium Level 2.2, Total Bilirubin 0.5, Aspartate Amino Transf (AST/SGOT) 16, Alanine Aminotransferase (ALT/SGPT) 9, Alkaline Phosphatase 81, Total Protein 6.5, Albumin 3.5 01/30/23 04:32: White Blood Count 7.2, Red Blood Count 3.62, Hemoglobin 10.7, Hematocrit 33, Mean Corpuscular Volume 90, Mean Corpuscular Hemoglobin 30, Mean Corpuscular Hemoglobin Concent 33, Red Cell Distribution Width 14.0, Platelet Count 259, Mean Platelet Volume 10.6, Immature Granulocyte % (Auto) 0, Neutrophils (%) (Auto) 66, Lymphocytes (%) (Auto) 23, Monocytes (%) (Auto) 7, Eosinophils (%) (Auto) 4, Basophils (%) (Auto) 0, Neutrophils # (Auto) 4.7, Lymphocytes # (Auto) 1.6, Monocytes # (Auto) 0.5, Eosinophils # (Auto) 0.3, Basophils # (Auto) 0.0, Immature Granulocyte # (Auto) 0.0, Sodium Level 134, Potassium Level 4.6, Chloride Level 104, Carbon Dioxide Level 20, Anion Gap 10, Blood Urea Nitrogen 36, Creatinine 2.39, Estimat Glomerular Filtration Rate 20, BUN/Creatinine Ratio 15, Glucose Level 100, Calcium Level 8.5, Corrected Calcium 9.0, Magnesium Level 2.1, Total Bilirubin 0.4, Aspartate Amino Transf (AST/SGOT) 16, Alanine Aminotransferase (ALT/SGPT) 9, Alkaline Phosphatase 80, Total Protein 6.1, Albumin 3.4 Discharge Home Medications: Active Scripts Active Amlodipine Besylate 5 Mg Tablet 5 Mg PO DAILY Metoprolol Tartrate 25 Mg Tablet 25 Mg PO BID Reported Tylenol Arthritis (Acetaminophen) 650 Mg Tablet.er 650 Mg PO BID Vitamin B-12 (Cyanocobalamin (Vitamin B-12)) 500 Mcg Lozenge 500 Mcg PO DAILY Vitamin B Complex 1 Each Tablet 1 Each PO DAILY Vitamin D3 (Cholecalciferol (Vitamin D3)) 50 Mcg (2000 Unit) Capsule 50 Mcg PO DAILY Ativan (Lorazepam) 0.5 Mg Tablet 0.5 Mg PO HS Clonidine TTS 2 Patch (Clonidine) 0.2 Mg/24 Hour Patch.tdwk 1 Patch TD TUE Ativan (Lorazepam) 0.5 Mg Tablet 0.5 Mg PO BID PRN Instructions to patient/family Please see electronic discharge instructions given to patient. Clinical Quality Measures AMI/AHF: ASA po Prior to arrival: MATEO Chin DO Jan 30, 2023 16:26
== END 2023-01-30 17:30 | disposition home or self-care (01) | DRG 305 ==
LOC: EDUNIT# 17:59 → ER 18:01 → ICU 20:26 → CSD 01-28 11:47
PROVIDERS: ADMIT Internal Medicine; ATTEND Internal Medicine
DX: I16.0 Hypertensive urgency (principal); N17.9 Acute kidney failure, unspecified; R00.1 Bradycardia, unspecified; I49.3 Ventricular premature depolarization; I12.9 Hypertensive chronic kidney disease with stage 1 through stage 4 chronic kidney disease, or unspecified chronic kidney disease; N18.9 Chronic kidney disease, unspecified; K21.9 Gastro-esophageal reflux disease without esophagitis; M19.90 Unspecified osteoarthritis, unspecified site; I95.1 Orthostatic hypotension; F32.A Depression, unspecified; H54.3 Unqualified visual loss, both eyes; M32.9 Systemic lupus erythematosus, unspecified; Z79.899 Other long term (current) drug therapy; Z88.5 Allergy status to narcotic agent; Z88.2 Allergy status to sulfonamides
CPT/HCPCS: 36415; 71045; 78452; 80053; 80061; 81000; 83735; 83874; 83880; 84100; 84484; 85025; 85610; 85730; 87081; 87636; 93005; 93017; 93041; 93306; 96374